=== PATIENT | female | born 1955 | race Caucasian/White ===

== ENCOUNTER → 2017-09-05 | Outpatient (CLI) | payer OTHER ==
--- NOTE | 2017-09-05 15:46 | BD ---
EXAMINATION TYPE: MG DEXA axial skeleton. DATE OF EXAM: 09/05/2017 COMPARISON: NONE CLINICAL HISTORY: screening Height: 5'3 1/2 Weight: 187 FRAX RISK QUESTIONS: Alcohol (3 or more units per day): no Family History (Parent hip fracture): no Glucocorticoids (More than 3mos): no (Ex: prednisone, prednisolone, methylprednisolone, dexamethasone, and hydrocortisone). History of Fracture in Adulthood: yes Secondary Osteoporosis: 1. Type 1 Diabetes: no 2. Hyperthyroidism: no 3. Menopause before 45: no 4. Malnutrition: no 5. Chronic liver disease: no Rheumatoid Arthritis: no Current Tobacco Use: no RISK FACTORS HISTORY OF: Diet low in dairy products/other sources of calcium: y Postmenopausal woman: y Frequent falls: y MEDICATIONS: Additional Medications: migraine Additional History: EXAM MEASUREMENTS: Bone mineral densitometry was performed using the [employer] System. Bone mineral density as measured about the Lumbar spine is: ----- L1-L4(G/cm2): 1.035 T Score Values are as follows: ----- L2: -1.9 ----- L3: -0.6 ----- L4: -0.9 ----- L1-L4: -1.2 Bone mineral density about the R hip (g/cm2): 0.919 Bone mineral density about the L hip (g/cm2): 0.841 T Score values are as follows: -----R Neck: -0.9 -----L Neck: -1.4 -----R Total: -1.0 -----L Total: -0.7 IMPRESSION: Osteopenia (T Score between -2.5 and -1) overall in left hip and low back. There is slightly increased risk of fracture and the patient may be considered for treatment. Re-Screen 2-5 years. NOTE: T-SCORE=SD OF THE YOUNG ADULT MEAN.
--- NOTE | 2017-09-07 10:09 | MM ---
Reason for exam: screening (asymptomatic). Last mammogram was performed 7 years and 7 months ago. History: Family history of breast cancer in aunt and breast cancer in grandmother. Physical Findings: A clinical breast exam by your physician is recommended on an annual basis and results should be correlated with mammographic findings. MG Screening Mammo w CAD Bilateral CC and MLO view(s) were taken. Prior study comparison: February 18, 2010, bilateral diagnostic digital mammog. December 18, 2007, bilateral diagnostic digital mammog. The breast tissue is heterogeneously dense. This may lower the sensitivity of mammography. Stable benign calcifications. There is chronic nodularity bilaterally. There is no dominant lesion. No significant changes when compared with prior studies. ASSESSMENT: Benign, BI-RAD 2 RECOMMENDATION: Routine screening mammogram of both breasts in 1 year.
== END | disposition home or self-care (01) ==
LOC: RADMAMWWP 14:49
PROVIDERS: ATTEND Family Medicine
DX: Z12.31 Encounter for screening mammogram for malignant neoplasm of breast (principal); M85.88 Other specified disorders of bone density and structure, other site
CPT/HCPCS: 77067; 77080

== ENCOUNTER 2018-11-12 20:43 | Observation (INO) | payer OTHER ==
[2018-11-12] MEDS ORDERED: MORPHINE SULFATE 4 MG/ML SYRINGE IVP STA (21:44)
[2018-11-12] MEDS ORDERED: DIPH,PERTUS(ACELL)TETVAC-LF 0.5 ML VIAL IM ONE (21:44)
[2018-11-12] MEDS ORDERED: ceFAZolin IN SWFI 2 GM/20 ML SYRINGE IVP STA (21:44)
[2018-11-12] MEDS: ONDANSETRON 4 MG/2 ML VIAL IVP STA (21:53)
--- NOTE | 2018-11-12 22:06 | ED ---
Upper Extremity HPI <MigdaliaJamil Jazmyne - Last Filed: 11/12/18 23:23> - General Source: patient, RN notes reviewed Mode of arrival: wheelchair Limitations: no limitations <Abbe Winchester - Last Filed: 11/12/18 23:28> - General Chief Complaint: Extremity Injury, Upper Stated Complaint: Wrist Injury-fall Time Seen by Provider: 11/12/18 21:17 - History of Present Illness Initial Comments: 63-year-old female presents emergency Department chief complaint of right wrist injury. Patient states she was walking her dog states her dog full for causing her trip and fall onto her right wrist. She did fall on asphalt. Patient denies any head injury no loss conscious. Patient states there is a bleeding wound on her right wrist. She is unsure when her last tetanus was. Patient is right-hand dominant. (Abbe Winchester) - Related Data Home Medications Medication Instructions Recorded Confirmed SUMAtriptan SUCCINATE [Imitrex] 100 mg PO TID PRN 11/25/14 11/12/18 buPROPion HCL [Wellbutrin XL] 300 mg PO HS 11/12/18 11/12/18 Allergies Allergy/AdvReac Type Severity Reaction Status Date / Time No Known Allergies Allergy Verified 11/12/18 21:43 Review of Systems ROS Other: All systems not noted in ROS Statement are negative. <Jamil Negron - Last Filed: 11/12/18 23:23> ROS Other: All systems not noted in ROS Statement are negative. <Abbe Winchester - Last Filed: 11/12/18 23:28> ROS Statement: Those systems with pertinent positive or pertinent negative responses have been documented in the HPI. Past Medical History Additional Past Medical History / Comment(s): Nephrolithiasis, History of Any Multi-Drug Resistant Organisms: None Reported Past Surgical History: Orthopedic Surgery, Tubal Ligation Additional Past Surgical History / Comment(s): deviated septum, left shoulder Past Psychological History: Depression Smoking Status: Former smoker Past Alcohol Use History: Rare Past Drug Use History: None Reported - Past Family History Brother(s) Family Medical History: Cancer <Abbe Winchester - Last Filed: 11/12/18 23:28> General Exam Limitations: no limitations General appearance: alert, in no apparent distress Neck exam: Present: normal inspection, full ROM. Absent: tenderness, meningismus, lymphadenopathy Respiratory exam: Present: normal lung sounds bilaterally. Absent: respiratory distress, wheezes, rales, rhonchi, stridor Cardiovascular Exam: Present: regular rate, normal rhythm, normal heart sounds. Absent: systolic murmur, diastolic murmur, rubs, gallop, clicks Extremities exam: Present: other (Right wrist there is an abrasion with secondary wound which appears to be a puncture wound, radial pulses equal bilaterally there is an obvious deformity, severe times with palpation, no proximal forearm tenderness) Skin exam: Present: warm, dry, intact, normal color. Absent: rash <Abbe Winchester M - Last Filed: 11/12/18 23:28> Course Vital Signs 11/12/18 11/12/18 11/12/18 21:04 22:14 22:39 Temperature 97.9 F Pulse Rate 74 76 77 Respiratory 18 16 16 Rate Blood Pressure 107/78 127/83 165/95 O2 Sat by Pulse 97 98 98 Oximetry 11/12/18 11/12/18 11/12/18 22:43 22:46 22:51 Temperature Pulse Rate 86 71 80 Respiratory 16 15 16 Rate Blood Pressure 160/90 176/90 172/102 O2 Sat by Pulse 98 98 100 Oximetry 11/12/18 11/12/18 22:58 23:08 Temperature Pulse Rate 72 72 Respiratory 16 16 Rate Blood Pressure 156/98 139/93 O2 Sat by Pulse 100 100 Oximetry Procedures - Orthopedic Fracture Reduction Fracture #1 Consent Obtained: written consent Side: right Fracture Reduction Location: radius, ulna Analgesia: procedural sedation Technique: direct manipulation Post Reduction X-rays Demonstrate: acceptable reduction Post-Reduction Neuro Exam: intact Post-Reduction Vascular Exam: intact Splint Applied: Yes Patient Tolerated Procedure: well - Procedural Sedation Procedural Sedation Start Time: 22:43 Procedural Sedation Stop Time: 23:23 Indications: fracture/dislocation reduction ASA Class: I Mallampati Airway Score: 1 Preparation: ekg monitor tech applied, pulse oximeter, capnometry used, supplemental O2 applied, suction/airway equipment at bedside, IV secured IV Propofol Dose (mgs): 60 Complications: none Patient Tolerated Procedure: well <Jamil Negron N - Last Filed: 11/12/18 23:23> Medical Decision Making <Jamil Negron - Last Filed: 11/12/18 23:23> - Medical Decision Making 63-year-old female with slip and fall, distal radius and ulnar fracture. There is concern for open fracture is resolving puncture wound with proximity to the proximal ulnar fracture. Case is discussed with orthopedics, Dr. Curry, will take to the ER for washout and splinting tomorrow. She will be continued on antibiotics. Laboratory studies will be obtained, these are pending. (Jamil Negron) Disposition <Jamil Negron - Last Filed: 11/12/18 23:23> <Abbe Winchester - Last Filed: 11/12/18 23:28> Clinical Impression: Open fracture of radius and ulna Disposition: ADMITTED IP TO THIS HOSP Condition: Fair Referrals: Shilpi Mcneil MD [Primary Care Provider] - 1-2 days
--- NOTE | 2018-11-12 22:11 | XR ---
PROCEDURE: XR elbow complete RT - 3V DATE AND TIME: 11/12/2018 9:33 PM CLINICAL INDICATION: PHH; Pain TECHNIQUE: Department protocol COMPARISON: None FINDINGS: There is no fracture or malalignment. The soft tissues are unremarkable. IMPRESSION: NO ACUTE PROCESS.
--- NOTE | 2018-11-12 22:13 | XR ---
PROCEDURE: XR forearm RT - 2 views DATE AND TIME: 11/12/2018 9:33 PM CLINICAL INDICATION: PHH; Pain TECHNIQUE: Department protocol COMPARISON: None FINDINGS: [place]ney-dorsal one shaft width displaced fractures of distal radius shaft and distal ulnar sha ft. DRUJ involvement. Carpal bones and metacarpals appear intact. IMPRESSION: Distal radius/ulna displaced fractures.
--- NOTE | 2018-11-12 22:15 | XR ---
PROCEDURE: XR wrist complete RT - 4 views DATE AND TIME: 11/12/2018 9:33 PM CLINICAL INDICATION: PHH; Pain TECHNIQUE: Department protocol COMPARISON: None FINDINGS: There is marked soft tissue swelling. Pauline-dorsal one shaft width displaced fractures of the distal radius and ulna are seen, with involvem ent of the DRUJ. The proximal and distal carpal rows appear intact, as do the metacarpals. IMPRESSION: Distal radius/ulna displaced fractures.
[2018-11-12] MEDS ORDERED: SODIUM CHLORIDE 0.9% 500 ML 500 ML IV STA (22:23)
[2018-11-12] MEDS ORDERED: PROPOFOL 10 MG/ML 20 ML VIAL IV STA (22:23)
[2018-11-12] MEDS ORDERED: HYDROmorphone 0.5 MG/0.5 ML SYRINGE IVP STA (23:12)
[2018-11-12] MEDS ORDERED: ONDANSETRON 4 MG/2 ML VIAL IVP PRN (23:24)
[2018-11-12] MEDS ORDERED: NALOXONE 0.4 MG/ML 1 ML VIAL IV PRN (23:24)
[2018-11-12] MEDS ORDERED: HYDROmorphone 0.5 MG/0.5 ML SYRINGE IVP PRN (23:24)
--- NOTE | 2018-11-12 23:44 | XR ---
EXAM: XR Right Wrist, 2 Views CLINICAL HISTORY: ITS.REASON XR Reason: Pain TECHNIQUE: Frontal and lateral views of the right wrist. COMPARISON: Right wrist radiographs on 11/12/2018 at 2122 hrs. FINDINGS: Bones/joints: Improved alignment of the distal right radius and ulna fractures with decreased but persistent mild ventral angulation of the distal fracture fragments. Interval placement of a cast which limits evaluation of fine bony detail. Osteopenia. Soft tissues: Soft tissue swelling. IMPRESSION: Improved alignment of the distal right radius and ulna fractures with decreased but persistent mild ventral angulation of the distal fracture fragments.
[2018-11-12] MEDS: SODIUM CHLORIDE 0.9% 1,000 ML IV SCH (23:47)
[2018-11-12 23:50] LABS: Basophils # (A) 0.1 k/uL (0-0.2); Basophils % (A) 0 %; Eosinophils # (A) 0.1 k/uL (0-0.7); Eosinophils % (A) 1 %; HCT 39.6 % (34.0-46.0); HGB 12.8 gm/dL (11.4-16.0); Lymphocytes # (A) 0.7 k/uL (1.0-4.8); Lymphocytes % (A) 5 %; MCH 29.8 pg (25.0-35.0); MCHC 32.4 g/dL (31.0-37.0); Mean Platelet Volume 8.2; Monocytes # (A) 0.8 k/uL (0-1.0); Monocytes % (A) 6 %; Neutrophils # (A) 12.1 k/uL (1.3-7.7); Neutrophils % (A) 88 %; Platelet Count 218 k/uL (150-450); RBC 4.31 m/uL (3.80-5.40); RDW 13.8 % (11.5-15.5); WBC 13.8 k/uL (3.8-10.6)
[2018-11-12 23:54] LABS: African American GFR (CKD) >90 (>60 ml/min/1.73 sqM); Albumin 3.8 g/dL (3.5-5.0); Anion Gap 8 mmol/L; Calcium 8.5 mg/dL (8.4-10.2); Carbon Dioxide 24 mmol/L (22-30); Chloride 109 mmol/L (98-107); Glucose 118 mg/dL (74-99); Sodium 141 mmol/L (137-145); Total Bilirubin 0.5 mg/dL (0.2-1.3); Total Protein 6.1 g/dL (6.3-8.2)
[2018-11-12 23:57] LABS: ALT 14 U/L (9-52); AST 28 U/L (14-36); Alkaline Phosphatase 60 U/L (38-126); Blood Urea Nitrogen 17 mg/dL (7-17); Potassium 4.7 mmol/L (3.5-5.1)
[2018-11-13 00:01] LABS: INR 0.9 (<1.2); Prothrombin Time 9.8 sec (9.0-12.0)
[2018-11-13] MEDS: HYDROmorphone 1 MG/ML 1 ML SYRINGE IVP PRN ×4 (01:18→11:25)
--- NOTE | 2018-11-13 09:06 | P.HPOR ---
History of Present Illness H&P Date: 11/13/18 This patient is a right hand dominant 63-year-old female that presented to the [facility] ED on 11/12/18 with complaints of a wrist injury. The patient states she was out walking her dog in front of her home when her puppy took off running, and she tripped on gravel and fell directly onto her outstretched right wrist. The patient states she saw an immediate deformity of the right wrist, and noticed a wound on the ulnar side of the wrist, therefore her daughter brought her in to the ED for evaluation. Arrival to the ED, x-rays were taken and revealed a displaced radius and ulna fractures. Due to the open, bleeding wound there was also concern that the fracture was open. Patient was given Tdap, and started on Kefzol. Fracture was reduced and splinted in the ED, and patient was admitted under the care of Dr. Curry for further evaluation and treatment. At the time of exam, the patient states her wrist pain is currently well controlled. She denies pain or injury to the left shoulder, left humerus, left clavicle. Patient denies additional complaints or concerns. Past Medical History Additional Past Medical History / Comment(s): Nephrolithiasis, ANXIETY/DEPRESSION , MIGRAINS History of Any Multi-Drug Resistant Organisms: None Reported Past Surgical History: Orthopedic Surgery, Tubal Ligation Additional Past Surgical History / Comment(s): deviated septum, left shoulder Past Anesthesia/Blood Transfusion Reactions: No Reported Reaction Past Psychological History: Anxiety, Depression Smoking Status: Former smoker Past Alcohol Use History: Rare Past Drug Use History: None Reported - Past Family History Brother(s) Family Medical History: Cancer Medications and Allergies Home Medications Medication Instructions Recorded Confirmed Type SUMAtriptan SUCCINATE [Imitrex] 100 mg PO TID PRN 11/25/14 11/12/18 History buPROPion HCL [Wellbutrin XL] 300 mg PO HS 11/12/18 11/12/18 History Allergies Allergy/AdvReac Type Severity Reaction Status Date / Time No Known Allergies Allergy Verified 11/12/18 21:43 Physical Examination At the time of my exam, the patient is lying in bed in no apparent distress. The patient is alert and oriented 3. Her head is atraumatic and normocephalic. Her breathing appears nonlabored. On inspection of the right upper extremity, there is a posterior splint in place. The splint is clean, dry, intact. The visible portion of the fingers are warm and well perfused with brisk capillary refill. Patient is able to wiggle her fingers with no issue or pain. There is no pain with passive range of motion of the fingers. Sensation is intact to light touch in the distribution of the median, radial, ulnar nerves. There is no pain on palpation of the right elbow, right humerus, right shoulder, right clavicle. Results Right elbow 11/13/18: No acute fractures. No acute dislocations seen. Right forearm 11/13/18: Volar displacement of distal ulna and radius fractures. Right wrist 11/13/18: Volar displacement of distal ulna and radius fractures. - Labs Labs: Abnormal Lab Results - Last 24 Hours (Table) 11/12/18 11/12/18 11/12/18 Range/Units 23:36 23:36 23:36 WBC 13.8 H (3.8-10.6) k/uL Neutrophils # 12.1 H (1.3-7.7) k/uL Lymphocytes # 0.7 L (1.0-4.8) k/uL APTT 19.0 L (22.0-30.0) sec Chloride 109 H (98-107) mmol/L Glucose 118 H (74-99) mg/dL Total Protein 6.1 L (6.3-8.2) g/dL H & H 11/12/18 Range/Units 23:36 Hgb 12.8 (11.4-16.0) gm/dL Hct 39.6 (34.0-46.0) % Coagulation 11/12/18 Range/Units 23:36 INR 0.9 (<1.2) Result Diagrams: 11/12/18 23:36 11/12/18 23:36 Assessment and Plan Assessment: Displaced distal radius and ulna fractures, right wrist Plan: - We will plan for an irrigation and debridement, reduction and splint application of the right wrist in the operating room today with Dr. Curry. Pending medical clearance and consent. - She is to keep her current splint in place at this time. Recommended ice and elevation for swelling and pain control.
[2018-11-13] MEDS ORDERED: SUMAtriptan SUCCINATE 50 MG TAB PO PRN (10:28)
--- NOTE | 2018-11-13 10:37 | P.CONS ---
History of Present Illness - Reason for Consult Consult date: 11/13/18 Medical management Requesting physician: Jose Luis Curry - Chief Complaint Right distal radius and ulna fracture - History of Present Illness This is a 63-year-old female, patient of Dr. Mcneil. She has a known past medical history of migraines, depression and kidney stones. Patient reports that she was taking her new puppy for a walk yesterday. The puppy took off running a patient then took off after it however she tripped and fell landing on cement with her hands stretched out. She was having pain in her right wrist came into the ER for further evaluation and treatment and x-rays of the wrist revealed a displaced radius and ulnar fracture. There is concerns of possible open fracture. Patient was given tetanus and started on Kefzol. Fracture was reduced and splinted in the ED the patient was admitted to orthopedics under Dr. Curry's care. Her pains currently controlled. Been consulted for medical management. Patient scheduled for or today for irrigation and debridement with reduction and splint application to the right wrist. Patient denies any fever, should chills, sweats, nausea vomiting, bowel movement changes, urinary symptoms, chest pain or shortness of breath. EKG has been ordered. White count was elevated at 13.8 Review of Systems Please refer to HPI otherwise unremarkable Past Medical History Additional Past Medical History / Comment(s): Nephrolithiasis, ANXIETY/DEPRESSION , MIGRAINS History of Any Multi-Drug Resistant Organisms: None Reported Past Surgical History: Orthopedic Surgery, Tubal Ligation Additional Past Surgical History / Comment(s): deviated septum, left shoulder Past Anesthesia/Blood Transfusion Reactions: No Reported Reaction Past Psychological History: Anxiety, Depression Smoking Status: Former smoker Past Alcohol Use History: Rare Past Drug Use History: None Reported - Past Family History Brother(s) Family Medical History: Cancer Medications and Allergies Home Medications Medication Instructions Recorded Confirmed Type SUMAtriptan SUCCINATE [Imitrex] 100 mg PO TID PRN 11/25/14 11/12/18 History buPROPion HCL [Wellbutrin XL] 300 mg PO HS 11/12/18 11/12/18 History Allergies Allergy/AdvReac Type Severity Reaction Status Date / Time No Known Allergies Allergy Verified 11/12/18 21:43 Physical Exam Vitals: Vital Signs Temp Pulse Pulse Resp BP BP Pulse Ox 11/13/18 08:00 97.6 F 69 18 110/73 97 11/13/18 04:00 97.7 F 66 16 142/87 100 11/13/18 00:27 97.6 F 78 16 131/89 98 11/12/18 23:49 70 16 141/89 11/12/18 23:08 72 16 139/93 100 11/12/18 22:58 72 16 156/98 100 11/12/18 22:51 80 16 172/102 100 11/12/18 22:46 71 15 176/90 98 11/12/18 22:43 86 16 160/90 98 11/12/18 22:39 77 16 165/95 98 11/12/18 22:14 76 16 127/83 98 11/12/18 21:04 97.9 F 74 18 107/78 97 Intake and Output 11/12/18 11/13/18 11/13/18 22:59 06:59 14:59 Other: Voiding Method Toilet # Voids 1 Weight 80.739 kg Head normocephalic Neck supple Lungs clear to auscultation bilaterally no wheezing or crackles Heart regular rate and rhythm S1-S2, no rub or gallop Abdomen is soft nontender nondistended positive bowel sounds no hepatosplenomegaly Extremities no edema. Right arm is in a splint. She is able to move her fingers. Results are warm to touch. Neuro alert and orientated to 3 Results CBC & Chem 7: 11/12/18 23:36 11/12/18 23:36 Labs: Abnormal Lab Results - Last 24 Hours (Table) 11/12/18 11/12/18 11/12/18 Range/Units 23:36 23:36 23:36 WBC 13.8 H (3.8-10.6) k/uL Neutrophils # 12.1 H (1.3-7.7) k/uL Lymphocytes # 0.7 L (1.0-4.8) k/uL APTT 19.0 L (22.0-30.0) sec Chloride 109 H (98-107) mmol/L Glucose 118 H (74-99) mg/dL Total Protein 6.1 L (6.3-8.2) g/dL Assessment and Plan Assessment: 1. Displaced distal radius and ulnar fracture of the right wrist: Patient scheduled for irrigation and debridement with reduction and splint application with Dr. Curry today. Patient received tetanus and is currently on Kefzol. Patient is medically stable to proceed with surgery once EKG is reviewed 2. History of migraines 3. History of depression 4. History of kidney stones 5. Leukocytosis: White count 13.8 possibly reactive from the fracture. Patient exhibiting no signs or symptoms of illness. Repeat CBC. GI prophylaxis Pepcid and will hold off on anticoagulation for DVT prophylaxis due to patient being scheduled for OR today Thank you for this consultation. We will continue to follow along during patient's hospitalization. Time with Patient: Greater than 30 (Greater than 50% of the total time spent in counseling and coordination of care.I performed an examination of the patient and discussed their management with the physician Trucking Supervisor. I have reviewed the Physician Trucking Supervisor's notes and agree with the documented findings and plan of care)
[2018-11-13 11:38] LABS: Basophils % (A) 0 %; Eosinophils % (A) 0 %; HCT 38.6 % (34.0-46.0); HGB 12.1 gm/dL (11.4-16.0); Lymphocytes # (A) 0.7 k/uL (1.0-4.8); Lymphocytes % (A) 7 %; MCH 29.8 pg (25.0-35.0); MCHC 31.4 g/dL (31.0-37.0); MCV 94.9 fL (80.0-100.0); Mean Platelet Volume 7.7; Monocytes # (A) 0.8 k/uL (0-1.0); Monocytes % (A) 8 %; Neutrophils # (A) 8.8 k/uL (1.3-7.7); Neutrophils % (A) 84 %; Platelet Count 212 k/uL (150-450); RBC 4.07 m/uL (3.80-5.40); RDW 12.9 % (11.5-15.5); WBC 10.6 k/uL (3.8-10.6)
[2018-11-13 11:49] LABS: ALT 21 U/L (9-52); AST 20 U/L (14-36); African American GFR (CKD) >90 (>60 ml/min/1.73 sqM); Albumin 3.6 g/dL (3.5-5.0); Alkaline Phosphatase 65 U/L (38-126); Anion Gap 9 mmol/L; Blood Urea Nitrogen 12 mg/dL (7-17); Calcium 8.5 mg/dL (8.4-10.2); Carbon Dioxide 24 mmol/L (22-30); Chloride 109 mmol/L (98-107); Glucose 114 mg/dL (74-99); Potassium 4.3 mmol/L (3.5-5.1); Sodium 142 mmol/L (137-145); Total Bilirubin 0.5 mg/dL (0.2-1.3); Total Protein 5.6 g/dL (6.3-8.2)
[2018-11-13] MEDS ORDERED: IV FLUID CONTINUATION 1,000 ML IV ONE (14:23)
[2018-11-13] MEDS: ONDANSETRON 4 MG/2 ML VIAL IVP STA (14:28)
[2018-11-13] MEDS ORDERED: fentaNYL (PF) 50 MCG/ML 2 ML AMP ONE (15:12)
[2018-11-13] MEDS ORDERED: MIDAZOLAM 2 MG/2 ML VIAL ONE (15:12)
[2018-11-13] MEDS ORDERED: PROPOFOL 10 MG/ML 20 ML VIAL IV ONE (15:12)
[2018-11-13] MEDS ORDERED: SUCCINYLCHOLINE CHLORIDE 100 MG/5 ML SYR IV ONE (15:12)
[2018-11-13] MEDS ORDERED: LIDOCAINE 1% INJ 10MG/ML (20 ML MDV) ONE (15:12)
[2018-11-13] MEDS ORDERED: ceFAZolin 1,000 MG VIAL ONE (15:12)
[2018-11-13] MEDS ORDERED: SODIUM CHLORIDE 0.9% 50 ML with ceFAZolin 1,000 MG IV ONE ×2 (15:42)
--- NOTE | 2018-11-13 16:33 | P.OP ---
Date of Procedure: 11/13/18 Preoperative Diagnosis: 1. Open right distal radius and ulna fractures Postoperative Diagnosis: 1. Closed right intra-articular distal radius fracture 2. Open Type 1 left distal ulna fracture Procedure(s) Performed: 1. Irrigation and debridement of left open ulna fracture 2. 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 She was brought into the ER where she was found to have significantly displaced distal radius and ulna fractures. There was an open wound over the dorsal aspect of the left distal ulna. The ER was concerned with an open fracture. She was admitted under my care for operative exploration and an irrigation and debridement of her open fracture. I met with the patient and her daughter preoperatively discussed treatment options. We discussed that this would be a temporizing procedure to explore and irrigate her open fracture and then splint her wrist fractures. They understand that they will need definitive surgery with a hand surgeon. We discussed the need for a computed tomography scan following surgery. We discussed the potential risks and complications of my procedure including but not limited to risk of anesthesia, superficial infection, deep infection, damage to local blood vessel or nerves, postoperative medical complications, complications from her splint. The patient her daughter understand these potential complications and also a gauze at other less common complications are possible. They provided their verbal and written consent to go forward with surgery. Operative Findings: There is a 5 mm open puncture wound over the dorsal ulnar aspect of the wrist. There is active bleeding with fat droplets. There is minimal contamination of the open wound with no gross dirt or debris. Description of Procedure: The patient was identified in preoperative holding and the correct right arm was marked my initials. I reviewed the consent form with the patient and her daughter. All their questions were answered. She was then brought back to the operating room and positioned on an OR table where general anesthetic and preoperative and biotics were administered. Once he was under an anesthetic her splint was removed. On inspection of the right wrist there is diffuse swelling and ecchymosis. There are superficial abrasions over the dorsum of the wrist. There is a 5 mm open puncture wound over the dorsal ulnar aspect of the wrist. There is active bleeding and fat droplets. The wound appeared consistent with an open fracture. The right wrist was then prepped and draped in the standard sterile fashion. Prior to starting surgery timeout was performed identifying the correct patient, operative extremity, and procedure. I began by extending the small puncture wound proximally and distally. The wound was explored and was found to communicate directly with the proximal shaft of the ulna. There was no gross contamination. The wound was thoroughly irrigated using 3 L of sterile saline and cystoscopy tubing once the wound was irrigated the extensions of the open wound were closed with interrupted 3-0 nylon and the open wound was left open to drain. A sterile dressing consisting of Betadine soaked Adaptic, 4 x 4, and web roll was applied. The drapes were taken down and a well-padded sugar tong splint was applied. A final fluoroscopic image was taken to verify reduction of the radius and ulna. The patient was placed in a sling, transferred to a gurney, and brought to the recovery room having encountered procedure well. Plan: The patient is going to discharge home tonight once her pain is controlled and the computed tomography scan of the wrist is completed. She is remain strictly nonweightbearing on her right arm and use a sling for comfort. She'll follow up with my partner Dr. Carlos Daniels later this week to discuss definitive treatment.
[2018-11-13] MEDS ORDERED: HYDROmorphone 1 MG/ML 1 ML SYRINGE IVP ONE (16:40)
[2018-11-13] MEDS: HYDROcodone/APAP 5-325MG 1 EACH TAB PO PRN (18:36)
--- NOTE | 2018-11-13 19:46 | CT ---
EXAMINATION TYPE: CT wrist RT wo con, with 3-D reconstructions DATE OF EXAM: 11/13/2018 COMPARISON: Radiographs 11/13/2018 3:15 PM HISTORY: Right wrist fracture. CT DLP: 236.3 mGycm Automated exposure control for dose reduction was used. FINDINGS: Radius intra-articular comminuted fracture: The displaced intra-articular fracture involves the radio carpal and DRUJ articulations. The main fracture fragment articulates with the scaphoid and lunate an d is one shaft-width displaced anteriorly. There is a 1.2 cm triangular bone fragment projecting just proximal to the main fracture fragment. Ulna apex-dorsomedial angulated fracture does not appear comminuted. It shows one half shaft-width me dial displacement and similar override. The proximal and distal carpal rows appear intact, as do the metacarpals. IMPRESSION: RADIUS-ULNAR FRACTURES.
[2018-11-13] MEDS ORDERED: buPROPion XL 300 MG TAB.ER.24H PO SCH (21:00)
[2018-11-13] MEDS: SODIUM CHLORIDE 0.9% 1,000 ML IV SCH ×2 (21:02→22:55)
[2018-11-14] MEDS ORDERED: HYDROcodone/APAP 5-325MG 1 EACH TAB ONE (01:53)
[2018-11-14 07:29] VITALS: BP 115/74; PULSE 78; RESP 18; TEMP 98.2
[2018-11-14] MEDS: HYDROcodone/APAP 5-325MG 1 EACH TAB PO PRN (08:22)
[2018-11-14] MEDS ORDERED: FAMOTIDINE 20 MG TAB PO SCH (09:00)
--- NOTE | 2018-11-14 09:12 | P.PN ---
Progress Note - Text Progress Note Date: 11/14/18 S: This patient is a right hand dominant 63-year-old female that presented to the [facility] ED on 11/12/18 with complaints of a right wrist injury. The patient states she was out walking her dog in front of her home when her puppy took off running, and she tripped on gravel and fell directly onto her outstretched right wrist. The patient states she saw an immediate deformity of the right wrist, and noticed a wound on the ulnar side of the wrist, therefore her daughter brought her in to the ED for evaluation. Arrival to the ED, x-rays were taken and revealed a displaced radius and ulna fractures. Due to the open, bleeding wound there was also concern that the fracture was open. Patient was given Tdap, and started on Kefzol. Fracture was reduced and splinted in the ED, and patient was admitted under the care of Dr. Curry for further evaluation and treatment. Patient underwent a right wrist irrigation and debridement, reduction and splint application on 11/13/[address] Curry. 11/14/18: Patient examined bedside this morning. Patient was discharged last night following the procedure, although per nursing and per the patient, the patient felt "out of it" and she felt as if her pain was uncontrolled, therefore she stayed overnight for observation. Patient states she is feeling better this morning, she ate a sandwich for dinner last night and tolerated this well. She states her pain is currently well controlled on [place]. She denies any issues with urination. Patient denies nausea, vomiting, chest pain, shortness of breath, numbness or tingling of the right upper extremity. O: On examination, the patient is in bed in no apparent distress. She is alert and oriented 3. On inspection of the right upper extremity, there is a well- fitting sugar tong splint in place. Sugar tong splint is clean, dry, intact. There is a sling in place. The visible portion of the right fingers are warm and well perfused with brisk capillary refill. Patient is able to wiggle her fingers without issue or pain. There is no pain with passive range of motion of the fingers. A: Open, right distal radius and ulna fractures status post irrigation and debridement, reduction and splint application on 11/13/[address] Curry. P: - Patient may discharge home today when her pain is well controlled and she receives medical clearance. Patient is to keep the splint intact Remain strictly nonweightbearing on the right upper extremity. She is to follow-up with Dr. Daniels in the office on 11/15/18. - I recommended she ice and elevate the right upper extremity for swelling and pain control. - Patient is to take pain medications as prescribed, she is to take Keflex 500mg for three days, as prescribed. Patient discussed with Dr. Curry.
--- NOTE | 2018-11-14 09:57 | P.PN ---
Subjective Progress Note Date: 11/14/18 This is a 63-year-old female, patient of Dr. Mcneil. She has a known past medical history of migraines, depression and kidney stones. Patient reports that she was taking her new puppy for a walk yesterday. The puppy took off running a patient then took off after it however she tripped and fell landing on cement with her hands stretched out. She was having pain in her right wrist came into the ER for further evaluation and treatment and x-rays of the wrist revealed a displaced radius and ulnar fracture. There is concerns of possible open fracture. Patient was given tetanus and started on Kefzol. Fracture was reduced and splinted in the ED the patient was admitted to orthopedics under Dr. Curry's care. Her pains currently controlled. Been consulted for medical management. Patient scheduled for or today for irrigation and debridement with reduction and splint application to the right wrist. Patient denies any fever, should chills, sweats, nausea vomiting, bowel movement changes, urinary symptoms, chest pain or shortness of breath. EKG has been ordered. White count was elevated at 13.8 On 11/14/2018 patient alert and oriented 3. Patient is status post irrigation debridement of left open ulnar fracture patient of long-arm splint with Dr. Curry. Patient's discharge was held yesterday due to increased drowsiness postoperatively. Today patient is currently resting comfortably in bed. Patient still states she has some discomfort but has been up ambulating. Patient denies any chest pain or shortness of breath. Patient denies nausea vomiting or diarrhea. Patient denies any urinary burning or frequency. Objective - Vital Signs Vital signs: Vital Signs Temp 98.2 F 11/14/18 07:00 Pulse 78 11/14/18 08:00 Resp 18 11/14/18 08:00 BP 115/74 11/14/18 07:00 Pulse Ox 93 L 11/14/18 07:00 Intake & Output 11/13/18 11/14/18 11/14/18 18:59 06:59 18:59 Intake Total 600 520 Output Total 1 Balance 599 520 Intake: IV 600 Oral 120 Other 400 Output: Estimated Blood Loss 1 Other: Voiding Method Toilet Toilet Toilet # Voids 1 1 - Exam Head normocephalic Neck supple Lungs clear to auscultation bilaterally no wheezing or crackles Heart regular rate and rhythm S1-S2, no rub or gallop Abdomen is soft nontender nondistended positive bowel sounds no hepatosplenomegaly Extremities no edema. Right arm is in a splint. She is able to move her fingers. Results are warm to touch. Neuro alert and orientated to 3 - Labs CBC & Chem 7: 11/13/18 10:59 11/13/18 10:59 Labs: Abnormal Lab Results - Last 24 Hours (Table) 11/13/18 11/13/18 Range/Units 10:59 10:59 Neutrophils # 8.8 H (1.3-7.7) k/uL Lymphocytes # 0.7 L (1.0-4.8) k/uL Chloride 109 H (98-107) mmol/L Glucose 114 H (74-99) mg/dL Total Protein 5.6 L (6.3-8.2) g/dL Assessment and Plan Assessment: 1. Displaced distal radius and ulnar fracture of the right wrist: Patient scheduled for irrigation and debridement with reduction and splint application with Dr. Curry today. Patient received tetanus and is currently on Kefzol. Status post irrigation and debridement of left open ulna fracture, application of long arm splint by physician. Patient has follow-up appointment with hand surgeon Dr. Daniels tomorrow 11/15/2018. Per orthopedic services recommended she ice and elevate right extremity. [place] for pain control and Keflex for 3 d ays per orthopedic services 2. History of migraines 3. History of depression 4. History of kidney stones 5. Leukocytosis: White count 13.8 possibly reactive from the fracture. Patient exhibiting no signs or symptoms of illness. Repeat WBC 10.6. Patient is asymptomatic afebrile. I performed an examination of the patient and discussed their management with the Nurse Practitioner. I have reviewed the Nurse Practitioner's notes and agree with the documented findings and plan of care
[2018-11-14 10:00] LABS: Basophils # (A) 0.1 k/uL (0-0.2); Basophils % (A) 1 %; Eosinophils % (A) 0 %; HCT 36.7 % (34.0-46.0); Lymphocytes # (A) 0.7 k/uL (1.0-4.8); Lymphocytes % (A) 10 %; MCH 30.4 pg (25.0-35.0); MCHC 32.7 g/dL (31.0-37.0); MCV 92.8 fL (80.0-100.0); Mean Platelet Volume 8.1; Monocytes # (A) 0.5 k/uL (0-1.0); Monocytes % (A) 7 %; Neutrophils # (A) 5.5 k/uL (1.3-7.7); Neutrophils % (A) 80 %; Platelet Count 200 k/uL (150-450); RBC 3.95 m/uL (3.80-5.40); RDW 13.9 % (11.5-15.5); WBC 6.9 k/uL (3.8-10.6)
[2018-11-14 10:17] LABS: ALT 21 U/L (9-52); AST 18 U/L (14-36); African American GFR (CKD) >90 (>60 ml/min/1.73 sqM); Albumin 3.1 g/dL (3.5-5.0); Alkaline Phosphatase 63 U/L (38-126); Anion Gap 6 mmol/L; Blood Urea Nitrogen 8 mg/dL (7-17); Calcium 8.4 mg/dL (8.4-10.2); Carbon Dioxide 28 mmol/L (22-30); Chloride 105 mmol/L (98-107); Glucose 115 mg/dL (74-99); Potassium 3.9 mmol/L (3.5-5.1); Sodium 139 mmol/L (137-145); Total Bilirubin 0.6 mg/dL (0.2-1.3); Total Protein 5.1 g/dL (6.3-8.2)
--- NOTE | 2018-11-15 10:57 | FL ---
EXAMINATION TYPE: XR wrist limited RT, XR wrist limited RT DATE OF EXAM: 11/13/2018 COMPARISON: NONE HISTORY: 63-year-old female postreduction right wrist FINDINGS: Single intraoperative image during closed reduction of the patient's distal radial and ulnar fracture s. Overlying plaster splint is demonstrated. FLUOROSCOPY Fluoroscopy time of 3 seconds was used during right wrist closed reduction. 1 image/s document/s the procedure. IMPRESSION: Fluoroscopy as above.
== END 2018-11-14 13:37 | disposition home or self-care (01) ==
LOC: EC 20:43 → 1SOBS 23:22
PROVIDERS: ADMIT Orthopaedic Surgery; ATTEND Orthopaedic Surgery
DX: S52.501B Unspecified fracture of the lower end of right radius, initial encounter for open fracture type I or II (principal); S52.001B Unspecified fracture of upper end of right ulna, initial encounter for open fracture type I or II; W01.0XXA Fall on same level from slipping, tripping and stumbling without subsequent striking against object, initial encounter; Y93.K1 Activity, walking an animal; F41.9 Anxiety disorder, unspecified; F32.9 Major depressive disorder, single episode, unspecified; G43.909 Migraine, unspecified, not intractable, without status migrainosus; D72.829 Elevated white blood cell count, unspecified; R40.0 Somnolence; S61.531A Puncture wound without foreign body of right wrist, initial encounter; K21.9 Gastro-esophageal reflux disease without esophagitis; Z87.891 Personal history of nicotine dependence; Z87.442 Personal history of urinary calculi; Z79.899 Other long term (current) drug therapy; Z23 Encounter for immunization; Z80.9 Family history of malignant neoplasm, unspecified
CPT/HCPCS: 97597; 25605; 29105; 96365; 96366; 96376; 90471; 96375; 99285; 36415; 80053 ×3; 85025 ×3; 85610; 85730; 73080; 73090; 73100 ×2; 73110; 73200; 90715; G0378 ×3; J2250; J2270; J2405 ×2; J0690 ×3; J2001; J3010; J1170 ×2; J0330; J2704 ×2; 96374

== ENCOUNTER → 2019-01-24 | Outpatient (CLI) | payer OTHER | END | disposition home or self-care (01) | LOC: LABWHC1 10:45 | PROVIDERS: ATTEND Orthopaedic Surgery | DX: M25.531 Pain in right wrist (principal); S52.571A Other intraarticular fracture of lower end of right radius, initial encounter for closed fracture; S52.691D Other fracture of lower end of right ulna, subsequent encounter for closed fracture with routine healing; S64.11XD Injury of median nerve at wrist and hand level of right arm, subsequent encounter; Z48.89 Encounter for other specified surgical aftercare | CPT/HCPCS: 36415; 82306 ==

== ENCOUNTER → 2023-05-17 | Outpatient (CLI) | payer MEDICARE, BC ==
--- NOTE | 2023-05-18 14:14 | BD ---
EXAMINATION TYPE: Axial Bone Density DATE OF EXAM: 05/17/2023 CLINICAL HISTORY: 68 years old Female. ICD-10 CODE: Z78.0 SCREENING Height: Weight: FRAX RISK QUESTIONS: Family History (Parent hip fracture): maternal aunt Glucocorticoids (More than 3mos): yes, and no (Ex: prednisone, prednisolone, methylprednisolone, dexamethasone, and hydrocortisone). History of Fracture in Adulthood: yes RISK FACTORS HISTORY OF: hx of left tib fib, and rt wrist and forearm and hand, 63 and 64 yrs old History of Wrist Fracture: yes, rt wrist at 64 yrs old Family History of Osteoporosis: maternal aunt, Postmenopausal woman: yes, at age 52 Hyperparathyroidism: no Adrenal Insufficiency: no MEDICATIONS: Prednisone or other steroids: yes, inhalers as needed, covid feb 11, doses of prednisone and other s teroids Additional Medications: bp meds, reflux meds in the past, vit d 3 Additional History: hypertension, reflux hx of ulcer, hx of covid January 2023 EXAM MEASUREMENTS: Bone mineral densitometry was performed using the [employer]. Bone mineral density as measured about the Lumbar spine is: ----- L1-L4(G/cm2): 0.995 T Score Values are as follows: ----- L1: -2.4 ----- L2: -1.9 ----- L3: -1.2 ----- L4: -1.1 ----- L1-L4: -1.5 Z Score Values are as follows: ----- L1: -1.4 ----- L2: -1.0 ----- L3: -0.2 ----- L4: -0.2 ----- L1-L4: -0.6 Bone mineral density has: Decreased -3.9% since study of: 09.05.2017 Bone mineral density about the R hip (g/cm2): 0.871 Bone mineral density about the L hip (g/cm2): 0.757 T Score values are as follows: -----R Neck: -0.5 -----L Neck: -2.3 -----R Total: -1.1 -----L Total: -2.0 Z Score values are as follows: -----R Neck: 0.7 -----L Neck: -1.2 -----R Total: -0.2 -----L Total: -1.1 Bone mineral density has: Decreased -7.1% since study of: 2018 FRAX%s: The graph provided illustrates a 20.2% chance for a major osteoporotic fx and a 4.2% chance f or the hips probability for fx in 10 years time. IMPRESSION: Osteopenia (T Score between -2.5 and -1). There is slightly increased risk of fracture and the patient may be considered for treatment. Re-Screen 2-5 years. NOTE: T-SCORE=SD OF THE YOUNG ADULT MEAN.
--- NOTE | 2023-05-22 15:57 | MM ---
Reason for Exam: Screening (asymptomatic). Last mammogram was performed 5 year(s) and 8 month(s) ago. Patient History: Menarche at age 12. First Full-Term at age 24. Postmenopausal. Maternal grandmother had breast cancer, age 85. Maternal aunt had breast cancer, age 50. Risk Values: Carmen 5 year model risk: 1.5%. NCI Lifetime model risk: 5.0%. Prior Study Comparison: 12/18/2007 Bilateral Diagnostic Mammogram, [facility]. 02/18/2010 Bilateral Diagnostic Mammogram, [facility]. 09/05/2017 Bilateral Screening Mammogram, [facility]. Tissue Density: There are scattered fibroglandular densities. Findings: Analyzed By CAD. Some new grouped calcifications have developed centrally left breast in the posterior depth for which further magnification views are recommended. Otherwise, no significant change. Overall Assessment: Incomplete: need additional imaging evaluation, BI-RAD 0 Management: Special View Mammogram of the left breast. Additional views to include mag CC, magnified lateral, and 3-D lateral views. [facility] will attempt to contact patient to return for supplemental views and ultrasound if indicated. Electronically signed and approved by: Joe Gandara M.D. Radiologist
== END | disposition home or self-care (01) ==
LOC: RADBDWWP 12:03
PROVIDERS: ATTEND Family Medicine
DX: Z12.31 Encounter for screening mammogram for malignant neoplasm of breast (principal); M85.89 Other specified disorders of bone density and structure, multiple sites; Z80.3 Family history of malignant neoplasm of breast; Z78.0 Asymptomatic menopausal state
CPT/HCPCS: 77067; 77080

== ENCOUNTER → 2023-05-26 | Outpatient (CLI) | payer MEDICARE, BC ==
--- NOTE | 2023-05-26 14:06 | MM ---
Reason for Exam: Additional evaluation requested from prior study. Last screening mammogram was performed less than 1 month ago. Patient History: Menarche at age 12. First Full-Term at age 24. Postmenopausal. Maternal grandmother had breast cancer, age 85. Maternal aunt had breast cancer, age 50. Risk Values: Carmen 5 year model risk: 1.5%. NCI Lifetime model risk: 5.0%. Prior Study Comparison: 02/18/2010 Bilateral Diagnostic Mammogram, [facility]. 09/05/2017 Bilateral Screening Mammogram, [facility]. 05/17/2023 Bilateral MG screening mammo w CAD, [facility]. Tissue Density: Left: There are scattered fibroglandular densities. Findings: Analyzed By CAD. Pattern appears stable. Impression there are some coarse appearing calcifications. Follow-up in 6 months No suspicious groups of microcalcifications, spiculated or lobular masses, architectural distortion or other secondary signs of malignancy are mammographically apparent. Overall Assessment: Probably benign, BI-RAD 3 Management: Diagnostic Mammogram of the left breast in 6 months. A negative mammogram report should not preclude additional follow up of suspicious palpable abnormalities. Patient should continue monthly self breast exam. A clinical breast exam by your physician is recommended on an annual basis and results should be correlated with mammographic findings. Electronically signed and approved by: Saeid Hoang D.O. Radiologis
== END | disposition home or self-care (01) ==
LOC: RADMAMWWP 13:41
PROVIDERS: ATTEND Family Medicine
DX: R92.322 Mammographic fibroglandular density, left breast (principal); Z78.0 Asymptomatic menopausal state; Z80.3 Family history of malignant neoplasm of breast
CPT/HCPCS: 77065; G0279; 77061

== ENCOUNTER → 2023-11-29 | Outpatient (CLI) | payer MEDICARE, BC ==
--- NOTE | 2023-11-29 09:44 | MM ---
Reason for Exam: Follow-up at short interval from prior study. Last screening mammogram was performed 7 month(s) ago. Patient History: Menarche at age 12. First Full-Term at age 24. Postmenopausal. Maternal grandmother had breast cancer, age 85. Maternal aunt had breast cancer, age 50. Risk Values: Carmen 5 year model risk: 1.5%. NCI Lifetime model risk: 5.0%. Prior Study Comparison: 09/05/2017 Bilateral Screening Mammogram, [facility]. 05/17/2023 Bilateral MG screening mammo w CAD, [facility]. 05/26/2023 Left MG 3D work up w/cad LT, [facility]. Tissue Density: Left: There are scattered areas of fibroglandular density. Findings: Analyzed By CAD. The pattern is stable. Coarse calcifications remain present. No significant interval change evident. Overall Assessment: Benign, BI-RAD 2 Management: Diagnostic Mammogram of both breasts in 6 months. A negative mammogram report should not preclude additional follow up of suspicious palpable abnormalities. Patient should continue monthly self breast exam. A clinical breast exam by your physician is recommended on an annual basis and results should be correlated with mammographic findings. Note on Carmen scores and lifetime risk: 1. A Carmen score greater than 3% is considered moderate risk. If this is the case, consider specialist referral to assess eligibility for a risk reducing agent. 2. If overall lifetime risk for the development of breast cancer is 20% or higher, the patient may qualify for future screening with alternating mammogram and breast MRI. Electronically signed and approved by: Saeid Hoang D.O. Radiologis
== END | disposition home or self-care (01) ==
LOC: RADMAMWWP 09:09
PROVIDERS: ATTEND Family Medicine
DX: R92.322 Mammographic fibroglandular density, left breast (principal); R92.8 Other abnormal and inconclusive findings on diagnostic imaging of breast; Z78.0 Asymptomatic menopausal state; Z80.3 Family history of malignant neoplasm of breast
CPT/HCPCS: 77065; G0279; 77061

== ENCOUNTER → 2023-12-04 | Outpatient (CLI) | payer MEDICARE, BC ==
[2023-12-04 14:29] LABS: INR 0.9 (<1.2); Partial Thromboplastin Time 21.4 sec (22.0-30.0); Prothrombin Time 10.1 sec (10.0-12.5)
[2023-12-04 19:58] LABS: ALT 21 U/L (8-44); AST 29 U/L (13-35); Albumin 4.2 g/dL (3.8-4.9); Alkaline Phosphatase 55 U/L (41-126); BUN/Creat Ratio 20.33 Ratio (12.00-20.00); Blood Urea Nitrogen 18.3 mg/dL (9.0-27.0); Calcium 9.1 mg/dL (8.7-10.3); Carbon Dioxide 20.5 mmol/L (21.6-31.8); Chloride 108 mmol/L (96-109); Globulin 1.4 g/dL (1.6-3.3); Glucose 98 mg/dL (70-110); Potassium 4.6 mmol/L (3.5-5.5); Sodium 142 mmol/L (135-145); Total Bilirubin 0.8 mg/dL (0.3-1.2); Total Protein 5.6 g/dL (6.2-8.2)
[2023-12-04 20:20] LABS: HCT 42.7 % (37.2-46.3); HGB 13.7 g/dL (12.0-15.0); MCH 30.5 pg (27.0-32.0); MCHC 32.1 g/dL (32.0-37.0); MCV 95.1 FL (80.0-97.0); Mean Platelet Volume 11.6 FL (9.5-12.2); NRBC Per 100 WBC 0 X 10*3/uL (0.00-0.01); Platelet Count 271 X 10*3/uL (140-440); RBC 4.49 X 10*6/uL (4.10-5.20); RDW 13.2 % (11.5-14.5); WBC 9.12 X 10*3/uL (4.50-10.00)
== END | disposition home or self-care (01) ==
LOC: LABPAT 13:19
PROVIDERS: ATTEND Orthopaedic Surgery
DX: Z01.812 Encounter for preprocedural laboratory examination (principal); E11.9 Type 2 diabetes mellitus without complications; M16.11 Unilateral primary osteoarthritis, right hip; Z22.322 Carrier or suspected carrier of Methicillin resistant Staphylococcus aureus
CPT/HCPCS: 80053; 83036; 85027; 85610; 85730; 86850; 86900; 86901; 87070

== ENCOUNTER 2023-12-13 10:38 | Inpatient (IN) | payer MEDICARE, BC ==
[2023-12-07 15:15] VITALS: BMI 30.2
[~2023-12-13 10:38] MED LIST: ACETAMINOPHEN TAB 500 MG TAB PO PRN; HYDROmorphone 0.5 MG/0.5 ML SYRINGE IVP PRN; LIDOCAINE 1% (10MG/ML) FOR IV START INTRADERMA PRN; MIDAZOLAM 2 MG/2 ML VIAL IV PRN; ONDANSETRON 4 MG/2 ML VIAL IVP PRN; TRANEXAMIC 1,000 MG/100ML-NACL 1,000 MG in SALINE 1 100ML.BAG IV PRN; TRANEXAMIC 1,000 MG/100ML-NACL 1,000 MG in SALINE 1 100ML.BAG IVPB PRN
[2023-12-13] MEDS: IV FLUID CONTINUATION 1,000 ML IV ONE ×3 (11:20→15:06)
[2023-12-13] MEDS: LACTATED RINGERS 1,000 ML IV SCH (11:21)
[2023-12-13] MEDS: KETOROLAC 15 MG/ML 1 ML VIAL IVP PRN (11:22)
[2023-12-13] MEDS: DEXAMETHASONE SOD PHOSPHATE 10 MG/ML 1 ML VIAL IV PRN (11:22)
[2023-12-13] MEDS: FAMOTIDINE 20 MG/2 ML VIAL IVP PRN (11:22)
[2023-12-13] MEDS: ONDANSETRON 4 MG/2 ML VIAL IVP ONE (11:22)
[2023-12-13] MEDS: oxyCODONE ER 10 MG TAB.ER.12H PO PRN (11:23)
[2023-12-13] MEDS: DOCUSATE 100 MG CAP PO PRN (11:23)
[2023-12-13] MEDS: MIDAZOLAM 2 MG/2 ML VIAL IVP ONE (11:36)
[2023-12-13] MEDS: fentaNYL (PF) 50 MCG/ML 2 ML AMP IVP ONE (11:36)
--- NOTE | 2023-12-13 12:26 | P.ANPRN ---
Procedure Note - Anesthesia - Nerve Block Performed Right [place] Single Date of Procedure: 12/13/23 Procedure Start Time: 11:35 Procedure Stop Time: 11:46 Location of Patient: PreOp Indication: Acute Post-Operative Pain, Analgesia, Requested by Surgeon Specifically requested for management of pain by DrSusanne: Jose Luis Curry Sedation Type: Sedate with meaningful contact maintained Preparation: Sterile Prep Position: Supine Catheter: None Needle Types: Pajunk Needle Gauge: 21 Ultrasound used to visualize needle placement: Yes Ultrasound used to observe medication spread: Yes Injectate: 0.5% Ropivacaine (see comment for volume) (30 cc plus Decadrone 4 mg) Blood Aspirated: No Pain Paresthesia on Injection Noted: No Resistance on Injection: Normal Image Stored and Saved: Yes Events: Uneventful and Well Tolerated
[2023-12-13] MEDS ORDERED: fentaNYL (PF) 50 MCG/ML 2 ML AMP ONE (12:45)
[2023-12-13] MEDS ORDERED: SUCCINYLCHOLINE CHLORIDE 200 MG/10 ML VIAL IV ONE (12:45)
[2023-12-13] MEDS ORDERED: SODIUM CHLORIDE 0.9% (PF) 10 ML VIAL ONE (12:45)
[2023-12-13] MEDS ORDERED: ROPIVACAINE 5 MG/ML 30 ML VIAL ONE (12:45)
[2023-12-13] MEDS ORDERED: ROCURONIUM 10 MG/ML (5 ML VIAL) IV ONE (12:45)
[2023-12-13] MEDS ORDERED: PROPOFOL 10 MG/ML 20 ML VIAL IV ONE (12:45)
[2023-12-13] MEDS ORDERED: DEXAMETHASONE SOD PHOSPHATE 4 MG/ML 1 ML VIAL ONE (12:45)
[2023-12-13] MEDS ORDERED: MIDAZOLAM 2 MG/2 ML VIAL ONE (12:45)
[2023-12-13] MEDS ORDERED: TRANEXAMIC 1,000 MG/100ML-NACL PREMIX BAG ONE (12:45)
[2023-12-13] MEDS ORDERED: HYDROmorphone (PF) 1 MG/ML ONE (12:45)
[2023-12-13] MEDS ORDERED: LIDOCAINE 1% INJ 10MG/ML (20 ML MDV) ONE (12:45)
[2023-12-13] MEDS ORDERED: GLYCOPYRROLATE 0.2 MG/ML 2 ML VIAL ONE (12:45)
[2023-12-13] MEDS ORDERED: ePHEDrine 50 MG/ML 1 ML VIAL ONE (12:45)
[2023-12-13] MEDS ORDERED: NEOSTIGMINE 1 MG/ML 10 ML VIAL ONE (12:45)
[2023-12-13] MEDS ORDERED: PHENYLEPHRINE 10 MG/ML VIAL ONE (12:45)
[2023-12-13] MEDS: ROPIVACAINE/EPI/CLONIDINE/KET 50 ML SYRINGE MISCELLANE PRN (13:24)
[2023-12-13] MEDS ORDERED: NALOXONE 0.4 MG/ML 1 ML VIAL IV PRN (15:03)
[2023-12-13] MEDS ORDERED: MAGNESIUM HYDROXIDE 2,400 MG/30 ML CUP PO PRN (15:03)
--- NOTE | 2023-12-13 15:03 | P.OP ---
Date of Procedure: 12/13/23 Preoperative Diagnosis: Severe right hip osteoarthritis Postoperative Diagnosis: Same Procedure(s) Performed: Right direct anterior total hip arthroplasty Implants: 1. Nice Trident II Acetabular Cup, Size #48 2. Abby Insignia Size #5 Femoral Stem, Standard Offset 3. Dual Mobility OD 38 mm, ID 22.2 mm, +0 mm neck Anesthesia: GETA, regional Surgeon: Jose Luis Curry Reverse Unit Operator #1: Hector Brunner Estimated Blood Loss (ml): 200 IV fluids (ml): 1,000 Pathology: none sent Condition: stable Disposition: PACU Indications for Procedure: I had a long discussion with the patient in the office on the potential risks and complications of an elective total hip replacement through a direct anterior approach. Risks discussed include, but are certainly not limited to, risks from anesthesia, superficial infection requiring local wound care or antibiotics, deep jaquan-prosthetic joint infection and the treatment required to eradicate infection, intraoperative fracture, postoperative periprosthetic fracture, damage to local blood vessels or nerves particularly the lateral femoral cutaneous nerve, delayed wound healing requiring local wound care or possibly surgical debridement, hip dislocation, leg length discrepancy, soft tissue irritation around the total hip implant such as iliopsoas tendinitis or trochanteric bursitis, wear and osteolysis from the implants, squeaking or audible noises, groin pain, thigh pain, heterotopic ossification, stiffness, aseptic loosening of the implants, dissatisfaction with surgical outcome, need for revision surgery, DVT, PE, swelling of the operative extremity, acute coronary event, stroke, failure to thrive, and possibly loss of life or limb. The patient understands that while these are the most common complications after an elective hip replacement there are certainly other less common complications possible. They were given ample time to ask questions regarding the potential complications of a hip replacement. Following our discussion the patient provided their verbal and written consent to go forward with an elective total hip replacement. Operative Findings: severe right hip osteoarthritis Description of Procedure: The patient was identified in the preoperative holding area and the correct hip was marked with my initials. I reviewed the procedure and consent with the patient. All of their questions were answered. The patient was then brought back into the operating room by anesthesia. While on the [facility] anesthesia was administered by the anesthesia team. Preoperative antibiotics and tranexamic acid were also given. After the patient was under anesthesia I examined their ankles to determine their preoperative leg length discrepancy. The skin over the anterior aspect of the hip was shaved to remove hair over the site of planned incision. Both feet and ankles were padded with webril and boots for the [place] were applied. The patient was then carefully transferred onto the [place] table. A perineal post was immediately placed. The arms were placed on arm holders and were well-padded. Both boots were secured to the spars on the [place] table. The patient was positioned so that the pelvis was centered over the post. Nonsterile drapes were applied. A timeout was performed identifying the correct patient, operative extremity, and procedure. At this point fluoroscopy was brought in to take preoperative images of the pelvis and operative hip. Using the standing AP pelvis from the office as a template, a comparable image was obtained with fluoroscopy. A metallic bar was used to create a bi-ischial line for use as a reference to leg length adjustments during the procedure. Global offset was also measured on both the operative and nonoperative leg. Fl uoroscopy was then brought out and a pre-scrub using a chlorhexidine scrub brush was performed. The operative limb was then prepped and draped in the standard sterile fashion. An anterior longitudinal incision was made lateral and distal to the ASIS. The skin and subcutaneous tissues were incised sharply. The underlying tensor fascia was identified and incised in its midportion. The fascia was dissected free from the underlying muscle and the muscle belly was retracted. A blunt tipped cobra retractor was placed over the superior neck under the muscle fibers of the gluteus minimus. The deep enveloping fascia of the tensor was incised. The anterior leash of vessels were then identified and cauterized. The fascia between the rectus and the capsule was then incised and the pre-capsular fat was excised. A second Cobra was placed inferior to the neck. The interval between the rectus and iliocapsularis and the hip capsule was developed and a retractor was placed carefully over the anterior rim of the acetabulum. A T-shaped anterior capsulotomy was performed. The superior capsular leaflet was left in place in the inferior capsular flap was excised. The Cobra retractors were p laced intracapsularly. We then made a femoral neck osteotomy according to preoperative and intraoperative templating and confirmed the level of the osteotomy using fluoroscopic imaging. The femoral head was removed, passed off to the back table, and sized. The superior capsular flap was excised. Retractors were placed circumferentially exposing the acetabulum. We then circumferentially debrided the acetabulum free of labrum and osteophytes. The pulvinar was removed to fully visualize the cotyloid fossa. We then sequentially reamed to achieve peripheral fit and excellent bleeding subchondral bone. The socket was thoroughly irrigated. The acetabular component was impacted into the appropriate position using fluoroscopy to guide version, inclination, and depth of insertion taking care to have a comparable image of the AP pelvis to the standing image taken in the office. An excellent press-fit was achieved and final position was confirmed using fluoroscopy. The press fit was augmented with bony cancellus dome screws. The liner was then impacted into the socket. Attention was then turned to the femur. The remnant dorsal lateral capsule was excised. The short external rotators were visible and protected. A bone hook was used to confirm appropriate translation of the trochanter away from the acetabulum. The leg was then extended and adducted and the bone hook was used to elevate the femur for broaching. A box osteotome and blunt tipped canal sound was then utilized to gain access to the femoral canal. We then sequentially broached the femur in appropriate anteversion until excellent torsional stability was achieved. The neck cut was brought flush to the trial broach with a calcar planar. A trial neck and head were then placed onto the broach and the hip was atraumatically reduced under direct visualization. External rotation to 90 was performed to assess stability. Fluoroscopy was brought in. An AP and lateral fluoroscopic image of the proximal femur was obtained to assess position and fill of the trial broach. An AP of the pelvis was then obtained and matched to the preoperative image taken. A bi-ischial bar was then placed and measurements were taken to assess changes in length and offset. The hip was then carefully dislocated, the proximal femur was exposed, and the trial implants were removed. The wound and proximal femur was thoroug hly irrigated using sterile saline and pulsatile lavage. The final femoral implant was dispensed and gently tapped into place generating an excellent press-fit. The trunnion was cleansed and the final head was tapped into place to engage the Vyas taper. The acetabulum was irrigated and visualized to be free of debris. The hip was carefully reduced. Stability was checked clinically with external rotation to 90 and there was no evidence of instability. Final fluoroscopic images were taken. The wound was then thoroughly irrigated and soaked with a dilute Betadine rinse for 3 minutes. 3 L of sterile saline was irrigated through the wound using pulsatile lavage. Local anesthetic cocktail was injected into the soft tissues around the surgical field. The wound was then closed in layers. A sterile dressing was placed over the surgical incision. The drapes were taken down and the patient was carefully transferred off of the [place] table. Following removal of the boots the leg john gths felt acceptable. The patient was then taken to recovery room having tolerated the procedure well. Hector Brunner PA-C was required as a skilled assistant statistician due to the complexity of surgery for patient positioning, draping, exposure, retraction, closure of wound and application of dressing. PLAN: The patient can weight-bear as tolerated on the operative extremity. DVT prophylaxis with aspirin 81 mg twice a day based on preoperative risk stratification. Physical therapy for gait training. Leave surgical dressing in place. Internal medicine for perioperative medical management.
--- NOTE | 2023-12-13 15:08 | XR ---
Fluoroscopy History: M16.11 OA RIGHT HIP RT HIP ARTHROPLASTY. 57 SECS FL. 2.5666 DAP
--- NOTE | 2023-12-13 15:29 | FL ---
EXAMINATION TYPE: FL guidance operating room Intraoperative/procedural fluoroscopic services were pro vided. Total fluoroscopy time is 57 seconds with a total of 6 submitted images to PACS. Please see th e operative/procedural note for further details. DAP: 2.5673. Fluoroscopy History: M16.11 OA RIGHT HIP RT HIP ARTHROPLASTY. 57 SECS FL. .5673 DAP
[2023-12-13] MEDS: DEXAMETHASONE SOD PHOSPHATE 4 MG/ML 1 ML VIAL IV ONE (18:16)
[2023-12-13] MEDS: ONDANSETRON 4 MG/2 ML VIAL IVP PRN (19:01)
[2023-12-13] MEDS: SODIUM CHLORIDE 0.9% 1,000 ML IV SCH (20:45)
[2023-12-13] MEDS: ASPIRIN 81 MG PO SCH (20:45)
[2023-12-13] MEDS: SENNOSIDES-DOCUSATE SODIUM 1 EACH TAB PO SCH (20:45)
[2023-12-13] MEDS: HYDROmorphone 0.5 MG/0.5 ML SYRINGE IVP PRN (23:42)
[2023-12-14] MEDS: HYDROcodone/APAP 10-325MG 1 EACH TAB PO PRN (05:23)
[2023-12-14 08:39] LABS: Basophils # (A) 0.02 X 10*3/uL (0.00-0.10); Basophils % (A) 0.1 %; Eosinophils # (A) 0 X 10*3/uL (0.04-0.35); Eosinophils % (A) 0 %; HCT 32.7 % (37.2-46.3); HGB 10.4 g/dL (12.0-15.0); Lymphocytes # (A) 0.54 X 10*3/uL (0.90-5.00); Lymphocytes % (A) 3.1 %; MCH 31.1 pg (27.0-32.0); MCHC 31.8 g/dL (32.0-37.0); MCV 97.9 FL (80.0-97.0); Mean Platelet Volume 10.9 FL (9.5-12.2); Monocytes # (A) 1.48 X 10*3/uL (0.20-1.00); Monocytes % (A) 8.4 %; NRBC Per 100 WBC 0 X 10*3/uL (0.00-0.01); Neutrophils # (A) 15.44 X 10*3/uL (1.80-7.70); Neutrophils % (A) 87.7 %; Platelet Count 238 X 10*3/uL (140-440); RBC 3.34 X 10*6/uL (4.10-5.20); RDW 12.7 % (11.5-14.5)
--- NOTE | 2023-12-14 08:39 | P.PN ---
Subjective Progress Note Date: 12/14/23 Principal diagnosis: Status post right direct anterior total hip arthroplasty No acute events overnight. Patient is doing well this morning. The pain in their hip is mild. They have walked to the bathroom with a walker and assistance. They deny chest pain or shortness of breath. Objective - Vital Signs Vital signs: Vital Signs Temp 98.1 F 12/14/23 06:55 Pulse 96 12/14/23 06:55 Resp 17 12/14/23 06:55 BP 91/53 12/14/23 06:55 Pulse Ox 97 12/14/23 08:12 FiO2 Intake & Output 12/13/23 12/14/23 12/14/23 18:59 06:59 18:59 Intake Total 2550 Output Total 200 Balance 2350 Weight 78.6 kg Intake: IV 2550 Output: Estimated Blood Loss 200 Other: # Voids 2 - Exam Patient is resting comfortably in bed. No apparent distress. They are awake, alert and able to answer questions. On inspection the surgical right hip dressing is intact, there is no drainage or strikethrough. The skin surrounding the dressing is free of erythema. There is mild swelling in the operative thigh. Operative femoral nerve function is intact. The patient is able to actively plantarflex and dorsiflex their operative ankle and toes. Their operative foot is pink and warm to touch. Assessment and Plan Assessment: Postop day 1 status post right direct anterior total hip arthroplasty Plan: Weight-bear as tolerated on the operative extremity. Use a walker to ambulate. Leave surgical dressing in place. Physical therapy for gait training and mobilization. Internal medicine for perioperative medical management. Disposition: Patient will work with physical therapy today and pending evaluation may go home tonight or tomorrow. Start form completed. Order for walker with seat completed.
[2023-12-14] MEDS: hydrOXYzine pamoate 25 MG CAP PO PRN (09:34)
--- NOTE | 2023-12-14 10:27 | P.CONS ---
History of Present Illness - Reason for Consult Consult date: 12/14/23 Medical management Requesting physician: Jose Luis Curry - History of Present Illness this is 68-year-old female patient of Dr. Mcneil who presented for an elective right hip arthroplasty with Dr. Curry on 12/13/2023. Patient has a history of essential hypertension, hyperlipidemia, headaches, anxiety and depression. Patient is currently postop day 1. Patient reports some pain to right hip site. Patient denies any chest pain or shortness of breath. Patient denies nausea vomiting or diarrhea. Patient denies any urinary burning or frequency.current vital signs temp 98.1, heart rate 96, respiratory rate 17, blood pressure 91/53 with a pulse ox of 97% on 2 L. Repeat labs ordered for a.m. Review of Systems please refer to HPI otherwise unremarkable Past Medical History Past Medical History: GERD/Reflux, Hyperlipidemia, Hypertension, Osteoarthritis (OA) Additional Past Medical History / Comment(s): Nephrolithiasis, ANXIETY/DEPRESSION , MIGRAINS History of Any Multi-Drug Resistant Organisms: None Reported Past Surgical History: Orthopedic Surgery, Tubal Ligation Additional Past Surgical History / Comment(s): deviated septum, left shoulder , rt wrist multiple fx's from fall injury-hardwire inserted and removed, Anterior total right hip Past Anesthesia/Blood Transfusion Reactions: No Reported Reaction Additional Past Anesthesia/Blood Transfusion Reaction / Comm: No hx of blood transfusion. Mother had difficulty coming out of anesthesia. Pt-Difficult intubation -surgery @[facility] 2019 during wrist surgery. "Dr. Curry told me I was a difficult intubation." Past Psychological History: Anxiety, Depression Smoking Status: Former smoker Past Alcohol Use History: Rare Additional Past Alcohol Use History / Comment(s): Started smoking late , 05/25ppd, quit 2003 Past Drug Use History: None Reported - Past Family History Brother(s) Family Medical History: Cancer Additional Family Medical History / Comment(s): Colon cancer Medications and Allergies Home Medications Medication Instructions Recorded Confirmed Type SUMAtriptan succinate [Imitrex] 100 mg PO TID PRN 11/25/14 12/13/23 History buPROPion HCL [Wellbutrin XL] 300 mg PO HS 11/12/18 12/13/23 History Advil(Unknown Dose) 1 dose PO Q8H 12/07/23 12/13/23 History Aspirin EC [Ecotrin Low Dose] 81 mg PO QAM 12/07/23 12/13/23 History Rosuvastatin [Crestor] 20 mg PO HS 12/07/23 12/13/23 History Vit D3 Calcium(Unknown Dose) 1 dose PO QAM 12/07/23 12/13/23 History lisinopriL [Zestril] 10 mg PO QAM 12/07/23 12/13/23 History Aspirin 81 mg PO BID #60 tab 12/13/23 Rx Diclofenac Sodium [Voltaren] 75 mg PO BID #60 tab 12/13/23 Rx Docusate [Colace] 100 mg PO BID #60 capsule 12/13/23 Rx HYDROcodone/APAP 5-325MG [[place] 1 - 2 tab PO Q6HR PRN #32 tab 12/13/23 Rx 5-325] Omeprazole [PriLOSEC] 40 mg PO DAILY #30 cap 12/13/23 Rx Allergies Allergy/AdvReac Type Severity Reaction Status Date / Time No Known Allergies Allergy Verified 12/13/23 11:20 Physical Exam Vitals: Vital Signs Temp Pulse Resp BP Pulse Ox 12/14/23 08:12 97 12/14/23 06:55 98.1 F 96 17 91/53 97 12/14/23 05:09 97.5 F L 87 94/58 12/14/23 03:22 98/50 12/14/23 03:07 97.3 F L 84 83/51 95 12/14/23 01:36 97.4 F L 73 18 85/54 98 12/13/23 23:19 97.4 F L 12/13/23 22:22 97.6 F 12/13/23 20:13 96.1 F L 71 102/68 100 12/13/23 20:00 97.4 F L 12/13/23 19:58 66 107/70 99 12/13/23 19:43 70 116/70 100 12/13/23 19:28 67 107/72 98 12/13/23 19:13 66 111/73 99 12/13/23 19:08 96.4 F L 12/13/23 18:58 80 131/83 96 12/13/23 18:43 70 126/77 97 12/13/23 18:28 69 126/77 97 12/13/23 18:17 96.4 F L 70 17 122/72 96 12/13/23 17:45 62 16 108/59 98 12/13/23 17:30 65 16 110/61 98 12/13/23 17:15 71 16 119/65 98 12/13/23 17:00 62 16 126/69 98 12/13/23 16:45 69 16 103/57 92 L 12/13/23 16:30 63 16 136/73 94 L 12/13/23 16:15 64 16 106/57 97 12/13/23 16:00 65 14 108/57 97 12/13/23 15:45 97.8 F 78 14 142/73 98 12/13/23 11:48 77 16 124/65 98 12/13/23 10:57 97.5 F L 72 18 131/73 97 Intake and Output 12/13/23 12/14/23 12/14/23 22:59 06:59 14:59 Intake Total 500 Output Total 200 Balance 300 Intake: IV 500 Output: Estimated Blood Loss 200 Other: Voiding Method Toilet # Voids 2 1 Weight 78.6 kg Head normocephalic Neck supple Lungs clear to auscultation bilaterally no wheezing or crackles Heart regular rate and rhythm S1-S2, no rub or gallop Abdomen is soft nontender nondistended positive bowel sounds no hepatosplenomegaly Extremities no edema. Right hip dressing clean dry and intact Neuro alert and orientated to 3 Results CBC & Chem 7: 12/14/23 05:52 Labs: Abnormal Lab Results - Last 24 Hours (Table) 12/14/23 Range/Units 05:52 WBC 17.60 H (4.50-10.00) X 10*3/uL RBC 3.34 L (4.10-5.20) X 10*6/uL Hgb 10.4 L (12.0-15.0) g/dL Hct 32.7 L (37.2-46.3) % MCV 97.9 H (80.0-97.0) FL MCHC 31.8 L (32.0-37.0) g/dL Immature Gran # 0.12 H (0.00-0.04) X 10*3/uL Neutrophils # 15.44 H (1.80-7.70) X 10*3/uL Lymphocytes # 0.54 L (0.90-5.00) X 10*3/uL Monocytes # 1.48 H (0.20-1.00) X 10*3/uL Eosinophils # 0 L (0.04-0.35) X 10*3/uL Assessment and Plan Assessment: 1. Status post right hip arthroplasty on 12/13/2023 2. History of essential hypertension 3. History of anxiety and depression 4. History of hyperlipidemia 5. History of migraines Thank you for this consultation we will continue to follow closely throughout stay Repeat labs ordered for a.m. Time with Patient: Greater than 30 (Greater than 60% of the total time spent in counseling and coordination of care)
[2023-12-14] MEDS: SODIUM CHLORIDE 0.9% 500 ML 500 ML IV ONE ×4 (11:39→17:32)
[2023-12-14 12:50] LABS: Appearance,Urine Clear (Clear); Bilirubin,Urine Negative (Negative); Blood,Urine Negative (Negative); Color,Urine Colorless; Glucose,Urine (UA) Negative (Negative); Ketones,Urine Negative (Negative); Leukocyte Esterase,Urine Negative (Negative); Nitrite,Urine Negative (Negative); PH, Urine 6.5 (5.0-8.0); Protein,Urine Negative (Negative); Specific Gravity,Urine 1.004 (1.001-1.035); Urobilinogen,Urine <2.0 mg/dL (<2.0)
[2023-12-14] MEDS: SODIUM CHLORIDE 0.9% 1,000 ML IV STA (17:33)
[2023-12-14 18:19] LABS: ALT 19 U/L (4-34); AST 43 U/L (14-36); African American GFR (CKD) 82 (>60 ml/min/1.73 sqM); Albumin 2.7 g/dL (3.5-5.0); Albumin/Globulin Ratio 1.7; Alkaline Phosphatase 37 U/L (38-126); Anion Gap 1 mmol/L; Blood Urea Nitrogen 13 mg/dL (7-17); Calcium 7.9 mg/dL (8.4-10.2); Carbon Dioxide 26 mmol/L (22-30); Chloride 112 mmol/L (98-107); Globulin 1.6 g/dL; Glucose 107 mg/dL (74-99); Non-African American GFR(CKD) 71 (>60 ml/min/1.73 sqM); Sodium 139 mmol/L (137-145); Total Bilirubin 0.4 mg/dL (0.2-1.3); Total Protein 4.3 g/dL (6.3-8.2)
[2023-12-14 18:33] LABS: Basophils % (A) 0 %; Eosinophils % (A) 0 %; HCT 30.5 % (34.0-46.0); HGB 9.6 gm/dL (11.4-16.0); Hypochromasia Slight; Lymphocytes % (A) 9 %; MCH 30.6 pg (25.0-35.0); MCHC 31.4 g/dL (31.0-37.0); MCV 97.6 fL (80.0-100.0); Mean Platelet Volume 8.6; Monocytes % (A) 9 %; Neutrophils % (A) 81 %; Platelet Count 192 k/uL (150-450); RBC 3.13 m/uL (3.80-5.40); RDW 13.2 % (11.5-15.5); WBC 11.2 k/uL (3.8-10.6)
[2023-12-14] MEDS: ATORVASTATIN 40 MG TAB PO SCH (20:14)
[2023-12-14] MEDS: buPROPion XL 300 MG TAB.ER.24H PO SCH (20:14)
[2023-12-14] MEDS: ACETAMINOPHEN TAB 325 MG TAB PO PRN (21:45)
[2023-12-14] MEDS: HYDROcodone/APAP 7.5-325MG 1 EACH TAB PO PRN (22:55)
--- NOTE | 2023-12-15 01:32 | XR ---
EXAM: XR Chest, 1 View CLINICAL HISTORY: ITS.REASON XR Reason: low O2 saturation. TECHNIQUE: Frontal view of the chest. COMPARISON: No relevant prior studies available. FINDINGS: Lungs: LEFT base consolidation, correlate for atelectasis versus mild pneumonia. Pleural space: Unremarkable. No pneumothorax. Heart: Unremarkable. No cardiomegaly. Mediastinum: Unremarkable. Normal mediastinal contour. Bones/joints: Unremarkable. No acute fracture. IMPRESSION: LEFT base consolidation, correlate for atelectasis versus mild pneumonia.
[2023-12-15 08:25] LABS: Basophils # (A) 0.05 X 10*3/uL (0.00-0.10); Basophils % (A) 0.5 %; Eosinophils # (A) 0 X 10*3/uL (0.04-0.35); Eosinophils % (A) 0 %; HCT 27.6 % (37.2-46.3); HGB 8.6 g/dL (12.0-15.0); Lymphocytes # (A) 0.92 X 10*3/uL (0.90-5.00); Lymphocytes % (A) 8.9 %; MCH 31.2 pg (27.0-32.0); MCHC 31.2 g/dL (32.0-37.0); Mean Platelet Volume 11.1 FL (9.5-12.2); Monocytes # (A) 1.48 X 10*3/uL (0.20-1.00); Monocytes % (A) 14.4 %; NRBC Per 100 WBC 0 X 10*3/uL (0.00-0.01); Neutrophils # (A) 7.79 X 10*3/uL (1.80-7.70); Neutrophils % (A) 75.8 %; Platelet Count 172 X 10*3/uL (140-440); RBC 2.76 X 10*6/uL (4.10-5.20); RDW 13.5 % (11.5-14.5); WBC 10.28 X 10*3/uL (4.50-10.00)
[2023-12-15] MEDS: lisinopriL 10 MG TAB PO SCH (09:14)
[2023-12-15 10:27] LABS: ALT 22 U/L (8-44); AST 44 U/L (13-35); Albumin 2.9 g/dL (3.8-4.9); Alkaline Phosphatase 43 U/L (41-126); Calcium 7.7 mg/dL (8.7-10.3); Carbon Dioxide 24.5 mmol/L (21.6-31.8); Chloride 110 mmol/L (96-109); Glucose 111 mg/dL (70-110); Potassium 4.2 mmol/L (3.5-5.5); Sodium 140 mmol/L (135-145); Total Bilirubin 0.4 mg/dL (0.3-1.2); Total Protein 3.9 g/dL (6.2-8.2)
--- NOTE | 2023-12-15 10:41 | P.PN ---
Subjective Progress Note Date: 12/15/23 this is 68-year-old female patient of Dr. Mcneil who presented for an elective right hip arthroplasty with Dr. Curry on 12/13/2023. Patient has a history of essential hypertension, hyperlipidemia, headaches, anxiety and depression. Patient is currently postop day 1. Patient reports some pain to right hip site. Patient denies any chest pain or shortness of breath. Patient denies nausea vomiting or diarrhea. Patient denies any urinary burning or frequency.current vital signs temp 98.1, heart rate 96, respiratory rate 17, blood pressure 91/53 with a pulse ox of 97% on 2 L. Repeat labs ordered for a.m. On 12/15/2023 patient is alert and oriented 3. Patient had elevated temp of 101 throughout the night. Patient also continued to be hypotensive and slightly tachycardic.urinary analysis was negative. Chest x-ray did show possible pneumonia. Concerns of aspiration pneumonia patient was started on IV Zosyn. At this time will consult infectious disease services. Per radiology services also consulted due to ongoing hypotension and tachycardia. At this time blood pressure does seem slightly improved. Patient denies any nausea vomiting or diarrhea. Patient denies chest pain or shortness of breath. Patient denies any urinary burning or frequency. Current vital signs temp 99.3, heart rate 96, respiratory rate 17, blood pressure 99/61 with pulse ox 97% on 2 L Objective - Vital Signs Vital signs: Vital Signs Temp 99.3 F 12/15/23 07:15 Pulse 96 12/15/23 07:15 Resp 17 12/15/23 07:15 BP 99/61 12/15/23 07:15 Pulse Ox 96 12/15/23 07:52 FiO2 Intake & Output 12/14/23 12/15/23 12/15/23 18:59 06:59 18:59 Other: Voiding Method Toilet # Voids 3 2 - Exam physicalHead normocephalic Neck supple Lungs clear to auscultation bilaterally no wheezing or crackles Heart regular rate and rhythm S1-S2, no rub or gallop Abdomen is soft nontender nondistended positive bowel sounds no hepatosplenomegaly Extremities no edema. Right hip dressing clean dry and intact Neuro alert and orientated to 3 - Labs CBC & Chem 7: 12/15/23 06:37 12/15/23 06:37 Labs: Abnormal Lab Results - Last 24 Hours (Table) 12/14/23 12/14/23 12/15/23 Range/Units 17:56 17:56 06:37 WBC 11.2 H 10.28 H (3.8-10.6) k/uL RBC 3.13 L 2.76 L (3.80-5.40) m/uL Hgb 9.6 L 8.6 L (11.4-16.0) gm/dL Hct 30.5 L 27.6 L (34.0-46.0) % MCV 100.0 H (80.0-97.0) FL MCHC 31.2 L (32.0-37.0) g/dL Neutrophils # 9.0 H 7.79 H (1.3-7.7) k/uL Monocytes # 1.48 H (0.20-1.00) X 10*3/uL Eosinophils # 0 L (0.04-0.35) X 10*3/uL Chloride 112 H (98-107) mmol/L Glucose 107 H (74-99) mg/dL Calcium 7.9 L (8.4-10.2) mg/dL AST 43 H (14-36) U/L Alkaline Phosphatase 37 L (38-126) U/L Total Protein 4.3 L (6.3-8.2) g/dL Albumin 2.7 L (3.5-5.0) g/dL Globulin (1.6-3.3) g/dL 12/15/23 Range/Units 06:37 WBC (3.8-10.6) k/uL RBC (3.80-5.40) m/uL Hgb (11.4-16.0) gm/dL Hct (34.0-46.0) % MCV (80.0-97.0) FL MCHC (32.0-37.0) g/dL Neutrophils # (1.3-7.7) k/uL Monocytes # (0.20-1.00) X 10*3/uL Eosinophils # (0.04-0.35) X 10*3/uL Chloride 110 H (98-107) mmol/L Glucose 111 H (74-99) mg/dL Calcium 7.7 L (8.4-10.2) mg/dL AST 44 H (14-36) U/L Alkaline Phosphatase (38-126) U/L Total Protein 3.9 L (6.3-8.2) g/dL Albumin 2.9 L (3.5-5.0) g/dL Globulin 1.0 L (1.6-3.3) g/dL Assessment and Plan Assessment: 1. Status post right hip arthroplasty on 12/13/2023 2. History of essential hypertension 3. History of anxiety and depression 4. History of hyperlipidemia 5. History of migraines 6. Febrile concerns of possible pneumonia. Patient started on IV Zosyn 7. Hypotension. Cardiology service is consulted patient was given multiple boluses Thank you for this consultation we will continue to follow closely throughout stay Repeat labs ordered for a.m. patient started on IV Zosyn Blood and urine cultures ordered Infectious disease and cardiology services consulted Continue to monitor patient at this time
[2023-12-15] MEDS: PIPERACILLIN-TAZOBACTAM 3.375 GM in SODIUM CHLORIDE 0.9% 100 ML IVPB SCH (11:29)
--- NOTE | 2023-12-15 11:43 | P.PN ---
Subjective Progress Note Date: 12/15/23 Principal diagnosis: Status post right direct anterior total hip arthroplasty Patient states they are doing well this morning. The pain in their hip is mild. They have walked to the bathroom with a walker and assistance. They worked with physical therapy yesterday. They deny chest pain or shortness of breath. A chest x-ray was obtained by medicine and medicine ordered an tibiotics. Objective - Vital Signs Vital signs: Vital Signs Temp 99.3 F 12/15/23 07:15 Pulse 96 12/15/23 07:15 Resp 17 12/15/23 07:15 BP 99/61 12/15/23 07:15 Pulse Ox 96 12/15/23 07:52 FiO2 Intake & Output 12/14/23 12/15/23 12/15/23 18:59 06:59 18:59 Other: Voiding Method Toilet # Voids 3 2 - Exam Patient is resting comfortably in bed. No apparent distress. They are awake, alert and able to answer questions. On inspection the surgical right hip dressing is intact, there is no drainage or strikethrough. The skin surrounding the dressing is free of erythema. There is mild swelling in the operative thigh. Operative femoral nerve function is intact. The patient is able to actively plantarflex and dorsiflex their operative ankle and toes. Their operative foot is pink and warm to touch. - Labs CBC & Chem 7: 12/15/23 06:37 12/15/23 06:37 Labs: Abnormal Lab Results - Last 24 Hours (Table) 12/14/23 12/14/23 12/15/23 Range/Units 17:56 17:56 06:37 WBC 11.2 H 10.28 H (3.8-10.6) k/uL RBC 3.13 L 2.76 L (3.80-5.40) m/uL Hgb 9.6 L 8.6 L (11.4-16.0) gm/dL Hct 30.5 L 27.6 L (34.0-46.0) % MCV 100.0 H (80.0-97.0) FL MCHC 31.2 L (32.0-37.0) g/dL Neutrophils # 9.0 H 7.79 H (1.3-7.7) k/uL Monocytes # 1.48 H (0.20-1.00) X 10*3/uL Eosinophils # 0 L (0.04-0.35) X 10*3/uL Chloride 112 H (98-107) mmol/L Glucose 107 H (74-99) mg/dL Calcium 7.9 L (8.4-10.2) mg/dL AST 43 H (14-36) U/L Alkaline Phosphatase 37 L (38-126) U/L Total Protein 4.3 L (6.3-8.2) g/dL Albumin 2.7 L (3.5-5.0) g/dL Assessment and Plan Assessment: Postop day 2 status post right direct anterior total hip arthroplasty Plan: Weight-bear as tolerated on the operative extremity. Use a walker to ambulate. Leave surgical dressing in place. Physical therapy for gait training and mobilization. Internal medicine for perioperative medical management. Start form completed. Order for walker with seat completed. Disposition: The patient is currently being treated for atelectasis versus pneumonia with IV antibiotics by medicine. Medicine consulted cardiology and infectious disease. Patient is cleared for discharge from an orthopedic standpoint and may discharge home pending medical clearance.
--- NOTE | 2023-12-15 12:54 | P.CRDCN ---
History of Present Illness Consult date: 12/15/23 Reason for Consult (text): Tachycardia, hypotension History of present illness: This is a 68-year-old female patient of Dr. Leblanc with past medical history of hypertension, hyperlipidemia. We have been asked to evaluate the patient for hypotension and tachycardia. Patient underwent right anterior total hip arthroplasty on 12/12. Following that patient was hypotensive with blood pressures systolic in the 90s and heart rate running in the 90s to 117. Patient states that she had significant pain in the hip and because her blood pressure was low, she was not given any pain medications. Regarding the hypotension, she states she did not have any lightheadedness, dizziness and did not feel any palpitations. Patient did receive a [place] 7.5 and pain is better but still there. She received IV fluid bolus 500 x 4 and following that her pulse ox dropped to 80%. SHe is currently on O2 at 2L with PO 97%. Patient denies shortness of breath, cough, fever or chills. Temperature max 101. Patient noted to have a drop in hgb 13.7 to 8.6. Patient was seen in the office with Dr. Leblanc on 11/27 for preop clearance. She had an echocardiogram that revealed EF of 55 to 60%. Patient also had a previous Lexiscan stress test that showed no evidence of stress-induced ischemia. EKG ordered. Chest x-ray: left basilar consolidation, correlate for atelectasis vs early pneumonia. Laboratory studies: WBC 10.2, HGB 8.6, creatinine 0.8. K 4.2 Home cardiac medications: asa 81 mg daily, lisinopril 10 mg daily, crestor 20 mg hs. Review Of Systems: At the time of my exam: CONSTITUTIONAL: Denies fever or chills. HEENT: Denies blurred vision, vision changes, or eye pain. Denies hemoptysis CARDIOVASCULAR: Denies chest pain. Denies orthopnea. Denies PND. Denies palpitations RESPIRATORY: Denies shortness of breath. GASTROINTESTINAL: Denies abdominal pain. Denies nausea or vomiting. HEMATOLOGIC: Denies bleeding disorders. GENITOURINARY: Denies any blood in urine. SKIN: Denies puritis. Denies rash. Physical examination: Gen: This is a 68 year-old female sitting in recliner in no acute distress. VS: reviewed HEENT: Head is atraumatic, normocephalic. Pupils equal, round. Sclerae is anicteric. NECK: Supple. No JVD. LUNGS: Diminished. No wheezes or rhonchi. No intercostal retractions. HEART: Regular rate and rhythm. 2/6 systolic murmur. ABDOMEN: Soft No tenderness. EXTREMITIES: No pedal edema. No calf tenderness. DP +2 bilat. NEUROLOGICAL: Patient is awake, alert and oriented x3. Assessment: Postop hypotention and tachycardia related to anemia, anesthesia Hypoxia with drop in PO reading Postop anemia OA s/p right total hip arthroplasty, anterior approach 12/12 Hyperlipidemia HTN Plan: Continue patient's home cardiac medications except hold lisinopril Obtain CTA chest to rule out PE (discussed with Dr. Curry) Obtain EKG, traffic monitor specialist Further recommendations to follow based upon clinical course Thank you kindly for this consultation. Nurse practitioner note has been reviewed, I agree with documented findings and plan of care. Patient was seen and examined. Past Medical History Past Medical History: GERD/Reflux, Hyperlipidemia, Hypertension, Osteoarthritis (OA) Additional Past Medical History / Comment(s): Nephrolithiasis, ANXIETY/DEPRESSION , MIGRAINS History of Any Multi-Drug Resistant Organisms: None Reported Past Surgical History: Orthopedic Surgery, Tubal Ligation Additional Past Surgical History / Comment(s): deviated septum, left shoulder , rt wrist multiple fx's from fall injury-hardwire inserted and removed, Anterior total right hip Past Anesthesia/Blood Transfusion Reactions: No Reported Reaction Additional Past Anesthesia/Blood Transfusion Reaction / Comment(s): No hx of blood transfusion. Mother had difficulty coming out of anesthesia. Pt- Difficult intubation -surgery @[facility] 2019 during wrist surgery. "Dr. Curry told me I was a difficult intubation." Past Psychological History: Anxiety, Depression Smoking Status: Former smoker Past Alcohol Use History: Rare Additional Past Alcohol Use History / Comment(s): Started smoking late 's, 05/25ppd, quit 2003 Past Drug Use History: None Reported - Past Family History Brother(s) Family Medical History: Cancer Additional Family Medical History / Comment(s): Colon cancer Medications and Allergies Home Medications Medication Instructions Recorded Confirmed Type SUMAtriptan succinate [Imitrex] 100 mg PO TID PRN 11/25/14 12/13/23 History buPROPion HCL [Wellbutrin XL] 300 mg PO HS 11/12/18 12/13/23 History Advil(Unknown Dose) 1 dose PO Q8H 12/07/23 12/13/23 History Aspirin EC [Ecotrin Low Dose] 81 mg PO QAM 12/07/23 12/13/23 History Rosuvastatin [Crestor] 20 mg PO HS 12/07/23 12/13/23 History Vit D3 Calcium(Unknown Dose) 1 dose PO QAM 12/07/23 12/13/23 History lisinopriL [Zestril] 10 mg PO QAM 12/07/23 12/13/23 History Aspirin 81 mg PO BID #60 tab 12/13/23 Rx Diclofenac Sodium [Voltaren] 75 mg PO BID #60 tab 12/13/23 Rx Docusate [Colace] 100 mg PO BID #60 capsule 12/13/23 Rx HYDROcodone/APAP 5-325MG [[place] 1 - 2 tab PO Q6HR PRN #32 tab 12/13/23 Rx 5-325] Omeprazole [PriLOSEC] 40 mg PO DAILY #30 cap 12/13/23 Rx Allergies Allergy/AdvReac Type Severity Reaction Status Date / Time No Known Allergies Allergy Verified 12/13/23 11:20 Physical Exam Vitals: Vital Signs Temp Pulse Resp BP Pulse Ox 12/15/23 07:52 96 12/15/23 07:15 99.3 F 96 17 99/61 97 12/15/23 02:23 101/65 12/15/23 02:00 98.9 F 113 H 18 91/61 90 L 12/14/23 22:32 98.9 F 105/75 12/14/23 20:00 101.0 F H 110 H 18 118/73 95 12/14/23 19:59 115/72 12/14/23 18:49 117 H 105/66 93 L 12/14/23 14:09 98.5 F 103 H 19 93/59 95 12/14/23 13:30 109 H 97/62 Intake and Output 12/14/23 12/15/23 12/15/23 22:59 06:59 14:59 Other: # Voids 3 2 Results 12/15/23 06:37 12/15/23 06:37 Cardiac Enzymes 12/14/23 12/15/23 Range/Units 17:56 06:37 AST 43 H 44 H (14-36) U/L CBC 12/14/23 12/15/23 Range/Units 17:56 06:37 WBC 11.2 H 10.28 H (3.8-10.6) k/uL RBC 3.13 L 2.76 L (3.80-5.40) m/uL Hgb 9.6 L 8.6 L (11.4-16.0) gm/dL Hct 30.5 L 27.6 L (34.0-46.0) % Plt Count 192 172 (150-450) k/uL Comprehensive Metabolic Panel 12/14/23 12/15/23 Range/Units 17:56 06:37 Sodium 139 140 (137-145) mmol/L Potassium 4.0 4.2 (3.5-5.1) mmol/L Chloride 112 H 110 H (98-107) mmol/L Carbon Dioxide 26 24.5 (22-30) mmol/L BUN 13 12.0 (7-17) mg/dL Creatinine 0.85 0.8 (0.52-1.04) mg/dL Glucose 107 H 111 H (74-99) mg/dL Calcium 7.9 L 7.7 L (8.4-10.2) mg/dL AST 43 H 44 H (14-36) U/L ALT 19 22 (4-34) U/L Alkaline Phosphatase 37 L 43 (38-126) U/L Total Protein 4.3 L 3.9 L (6.3-8.2) g/dL Albumin 2.7 L 2.9 L (3.5-5.0) g/dL Current Medications Generic Name Dose Route Start Last Admin Trade Name Freq PRN Reason Stop Dose Admin Acetaminophen 650 mg 12/14/23 21:38 12/14/23 21:45 Acetaminophen Tab 325 Mg Tab PO 650 mg Q6HR PRN Administration Fever and/ or Pain Hydrocodone Bitart/Acetaminophen 1 each 12/13/23 15:03 Hydrocodone/Apap 5-325mg 1 Each Tab PO 01/12/24 15:02 Q6HR PRN Pain Scale 1 to 5 Hydrocodone Bitart/Acetaminophen 1 each 12/13/23 15:03 12/14/23 05:23 Hydrocodone/Apap 10-325mg 1 Each Tab PO 01/12/24 15:02 1 each Q6H PRN Administration Pain Scale 6 to 10 Hydrocodone Bitart/Acetaminophen 1 each 12/14/23 22:43 12/15/23 07:01 Hydrocodone/Apap 7.5-325mg 1 Each Tab PO 1 each Q6HR PRN Administration Pain Aspirin 81 mg 12/13/23 21:00 12/15/23 09:20 Aspirin 81 Mg PO 01/12/24 20:59 81 mg BID TAMAR Administration Atorvastatin Calcium 40 mg 12/14/23 21:00 12/14/23 20:14 Atorvastatin 40 Mg Tab PO 40 mg HS TAMAR Administration Bupropion HCl 300 mg 12/14/23 21:00 12/14/23 20:14 Bupropion Xl 300 Mg Tab.Er.24h PO 300 mg HS TAMAR Administration Hydromorphone HCl 0.5 mg 12/13/23 15:03 12/15/23 02:47 Hydromorphone 0.5 Mg/0.5 Ml Syringe IVP 01/12/24 15:02 0.5 mg Q3HR PRN Administration Pain Scale 7 to 10 Hydroxyzine Pamoate 25 mg 12/13/23 15:03 12/14/23 22:55 Hydroxyzine Pamoate 25 Mg Cap PO 01/12/24 15:02 25 mg Q4HR PRN Administration Nausea, Anxiety, Pain Control Lactated Ringer's 1,000 mls @ 20 mls/hr 12/12/23 08:00 12/15/23 03:45 Lactated Ringers IV 01/11/24 07:59 Not Given .Q24H TAMAR Sodium Chloride 1,000 mls @ 100 mls/hr 12/13/23 15:15 12/15/23 03:45 Saline 0.9% IV 01/12/24 15:14 Not Given .Q10H TAMAR Lidocaine HCl 0.1 ml 12/12/23 07:46 Lidocaine 1% (10mg/Ml) For Iv Start INTRADERMA 01/11/24 07:45 PER PROTOCOL PRN IV Start Lisinopril 10 mg 12/15/23 09:00 12/15/23 09:14 Lisinopril 10 Mg Tab PO Not Given QAM TAMAR Magnesium Hydroxide 2,400 mg 12/13/23 15:03 Magnesium Hydroxide 2,400 Mg/30 Ml Cup PO 01/12/24 15:02 DAILY PRN Constipation Naloxone HCl 0.2 mg 12/13/23 15:03 Naloxone 0.4 Mg/Ml 1 Ml Vial IV 01/12/24 15:02 Q2M PRN Opioid Reversal Ondansetron HCl 4 mg 12/13/23 15:03 12/14/23 08:10 Ondansetron 4 Mg/2 Ml Vial IVP 01/12/24 15:02 4 mg Q6HR PRN Administration Nausea And Vomiting Senna/Docusate Sodium 2 each 12/13/23 21:00 12/14/23 20:14 Sennosides-Docusate Sodium 1 Each Tab PO 01/12/24 20:59 2 each HS TAMAR Administration Intake and Output 12/14/23 12/15/23 12/15/23 22:59 06:59 14:59 Other: # Voids 3 2 12/15/23 06:37 12/15/23 06:37
--- NOTE | 2023-12-15 14:24 | CT ---
EXAMINATION TYPE: CT angio chest CT DLP: 354.2 mGycm, Automated exposure control for dose reduction was used. DATE OF EXAM: 12/15/2023 1:55 PM COMPARISON: Chest radiograph from same day. Multiple CTs of the chest with most recent on . CLINICAL INDICATION:Female, 68 years old with history of dyspnea following surgery; postop shortness of breath. TECHNIQUE/CONTRAST: CTA scan of the thorax is performed with IV Contrast, patient injected with 80 mL of Isovue 370, MIP images are created and reviewed these are created on a separate workstation.. FINDINGS: Pulmonary Artery: There is no evidence for a filling defect within the pulmonary vasculature to sugge st acute pulmonary embolism. The pulmonary artery is of normal size. Lungs/Pleura: Small patchy areas of airspace disease are seen in the medial left lower lobe posterior ly. Tiny bilateral pleural effusions are present. Airway: Large airways are patent. Heart: Heart is mildly enlarged. No significant coronary artery disease is appreciated. Vasculature: No evidence of aortic aneurysm. Mediastinum: No gross evidence of adenopathy. Musculoskeletal: No acute osseous abnormalities Soft Tissues: Unremarkable. Lower neck: No significant findings. Upper Abdomen: No significant findings. IMPRESSION: 1. No evidence of pulmonary embolism. 2. Small patchy areas of airspace disease in the medial left lower lobe posteriorly
[2023-12-15 20:36] VITALS: RESP 18
[2023-12-16 04:34] LABS: Basophils % (A) 0 %; Eosinophils % (A) 0 %; HCT 27.1 % (34.0-46.0); HGB 8.8 gm/dL (11.4-16.0); Hypochromasia Slight; Lymphocytes # (A) 0.8 k/uL (1.0-4.8); Lymphocytes % (A) 10 %; MCH 31.4 pg (25.0-35.0); MCHC 32.4 g/dL (31.0-37.0); MCV 96.9 fL (80.0-100.0); Monocytes # (A) 0.7 k/uL (0-1.0); Monocytes % (A) 9 %; Neutrophils # (A) 6.3 k/uL (1.3-7.7); Neutrophils % (A) 79 %; Platelet Count 180 k/uL (150-450); RDW 12.8 % (11.5-15.5); WBC 8.1 k/uL (3.8-10.6)
--- NOTE | 2023-12-16 09:42 | P.DS ---
Providers Date of admission: 12/15/23 14:12 Expected date of discharge: 12/16/23 Attending physician: Jose Luis Curry Consults: 12/13/23 15:03 Consult Physician Routine Consulting Provider: Dilip Paris Consult Reason/Comments: post op medical management Do you want consulting provider notified?: Yes 12/15/23 09:31 Consult Physician Routine Consulting Provider: Kayden Foster Consult Reason/Comments: hypotension, tachycardia Do you want consulting provider notified?: Yes Primary care physician: Shilpi Mcneil - Discharge Diagnosis(es) (1) Primary localized osteoarthritis of right hip Current Visit: Yes Status: Acute (2) Status post total hip replacement, right Current Visit: Yes Status: Acute Hospital Course: This is a 68-year-old female with known history of degenerative arthritis of the right hip. The patient presents for evaluation. After discussion and consideration patient elects to proceed with total hip arthroplasty with direct anterior approach. The patient is seen preoperatively by primary care physician and cleared for surgery. Patient is admitted to [facility] on 12/15/2023 for total hip arthroplasty with direct anterior approach. The procedure is performed without complication or sequelae. The patient is doing well postoperatively. Labs and vital signs are stable on day of discharge. On day of discharge patient's hip incision is healing well. There is minimal erythema. There is no drainage noted at this time. There is minimal soft tissue swelling to the hip and thigh. Patient has full foot and ankle motion without difficulty or pain. Neurovascular status to the lower extremity is intact. Patient is discharged to home in good condition. Please see med rec for accurate list of home medications. Patient Condition at Discharge: Good Plan - Discharge Summary Discharge Rx Participant: Yes New Discharge Prescriptions: New Docusate [Colace] 100 mg PO BID #60 capsule Aspirin 81 mg PO BID #60 tab HYDROcodone/APAP 5-325MG [Kinross 5-325] 1 - 2 tab PO Q6HR PRN #32 tab PRN Reason: Pain Diclofenac Sodium [Voltaren] 75 mg PO BID #60 tab Omeprazole [PriLOSEC] 40 mg PO DAILY #30 cap No Action SUMAtriptan succinate [Imitrex] 100 mg PO TID PRN PRN Reason: Migraine Headache buPROPion HCL [Wellbutrin XL] 300 mg PO HS lisinopriL [Zestril] 10 mg PO QAM Rosuvastatin [Crestor] 20 mg PO HS Advil(Unknown Dose) 1 dose PO Q8H Vit D3 Calcium(Unknown Dose) 1 dose PO QAM Aspirin EC [Ecotrin Low Dose] 81 mg PO QAM Discharge Medication List SUMAtriptan succinate [Imitrex] 100 mg PO TID PRN 11/25/14 [History] buPROPion HCL [Wellbutrin XL] 300 mg PO HS 11/12/18 [History] Advil(Unknown Dose) 1 dose PO Q8H 12/07/23 [History] Aspirin EC [Ecotrin Low Dose] 81 mg PO QAM 12/07/23 [History] Rosuvastatin [Crestor] 20 mg PO HS 12/07/23 [History] Vit D3 Calcium(Unknown Dose) 1 dose PO QAM 12/07/23 [History] lisinopriL [Zestril] 10 mg PO QAM 12/07/23 [History] Aspirin 81 mg PO BID #60 tab 12/13/23 [Rx] Diclofenac Sodium [Voltaren] 75 mg PO BID #60 tab 12/13/23 [Rx] Docusate [Colace] 100 mg PO BID #60 capsule 12/13/23 [Rx] HYDROcodone/APAP 5-325MG [Kinross 5-325] 1 - 2 tab PO Q6HR PRN #32 tab 12/13/23 [Rx] Omeprazole [PriLOSEC] 40 mg PO DAILY #30 cap 12/13/23 [Rx] Follow up Appointment(s)/Referral(s): [facility] [[facility]] - 1-2 Days ([facility] will call you to schedule your in home physical therapy visits. ) Jose Luis Curry MD [Medical Doctor] - 2 Weeks Activity/Diet/Wound Care/Special Instructions: 1. Weight-bear as tolerated on your operative extremity unless instructed otherwise. Use a walker or other assistive device to ambulate. 2. Leave surgical dressing in place. If your dressing becomes saturated with blood, there is drainage, or the dressing becomes loose please contact the office. 3. It is okay to shower with your surgical dressing, but do not submerge in water (no hot tubs, bath's, swimming etc.) 4. Make sure to take her blood clot prevention medication as prescribed (barrett gonzalez, Lashae Xarelto, and Plavix are commonly prescribed medications for blood clot prevention) 5. While taking Kinross or Percocet for pain make sure you're taking a stool softener (Colace) and drink lots of water. 6. Keep all follow-up appointments as scheduled. You will usually be seen in 1-2 weeks following surgery. 7. Please contact the office with any questions or concerns [phone]
[2023-12-16 09:49] VITALS: BP 105/70; PULSE 89; TEMP 98
--- NOTE | 2023-12-16 11:31 | P.PN ---
Subjective Progress Note Date: 12/16/23 This is a 68-year-old female patient who was admitted to the hospital and underwent hip surgery with post operation hypotension and tachycardia and for that reason the patient was seen. Pulmonary embolism was ruled out by CT scan of the chest. Please note that the patient was anemic. December 11, 2023 The patient was seen and evaluated this morning which she is asymptomatic and she is hemodynamically stable with improvement in the blood pressure and the heart rate as well. From the cardiovascular standpoint of view, the patient can be discharged home. Examination is remarkable for regular rhythm with clear breathing sounds bilaterally and no edema was noted in the lower extremities Assessment Status post hip surgery Postoperation hypotension and tachycardia and both improved Multiple comorbid conditions Plan Continue the current medical regimen The patient can be discharged home Objective - Vital Signs Vital signs: Vital Signs Temp 98.0 F 12/16/23 07:16 Pulse 89 12/16/23 07:16 Resp 18 12/16/23 07:16 BP 105/70 12/16/23 07:16 Pulse Ox 97 12/16/23 07:16 FiO2 Intake & Output 12/15/23 12/16/23 12/16/23 18:59 06:59 18:59 Other: Voiding Method Toilet # Voids 1 1 - Labs CBC & Chem 7: 12/16/23 03:24 12/15/23 06:37 Labs: Abnormal Lab Results - Last 24 Hours (Table) 12/16/23 Range/Units 03:24 RBC 2.80 L (3.80-5.40) m/uL Hgb 8.8 L (11.4-16.0) gm/dL Hct 27.1 L (34.0-46.0) % Lymphocytes # 0.8 L (1.0-4.8) k/uL Microbiology - Last 24 Hours (Table) 12/15/23 00:00 Urine Culture - Final Urine,Voided 12/14/23 21:57 Blood Culture - Preliminary Blood
--- NOTE | 2023-12-16 11:54 | P.PN ---
Subjective Progress Note Date: 12/16/23 this is 68-year-old female patient of Dr. Mcneil who presented for an elective right hip arthroplasty with Dr. Curry on 12/13/2023. Patient has a history of essential hypertension, hyperlipidemia, headaches, anxiety and depression. Patient is currently postop day 1. Patient reports some pain to right hip site. Patient denies any chest pain or shortness of breath. Patient denies nausea vomiting or diarrhea. Patient denies any urinary burning or frequency.current vital signs temp 98.1, heart rate 96, respiratory rate 17, blood pressure 91/53 with a pulse ox of 97% on 2 L. Repeat labs ordered for a.m. On 12/15/2023 patient is alert and oriented 3. Patient had elevated temp of 101 throughout the night. Patient also continued to be hypotensive and slightly tachycardic.urinary analysis was negative. Chest x-ray did show possible pneumonia. Concerns of aspiration pneumonia patient was started on IV Zosyn. At this time will consult infectious disease services. Per radiology services also consulted due to ongoing hypotension and tachycardia. At this time blood pressure does seem slightly improved. Patient denies any nausea vomiting or diarrhea. Patient denies chest pain or shortness of breath. Patient denies any urinary burning or frequency. Current vital signs temp 99.3, heart rate 96, respiratory rate 17, blood pressure 99/61 with pulse ox 97% on 2 L On 12/16/2023, patient was seen and examined on the medical floor, she is alert and oriented x 3 in no apparent distress, she is feeling better today, there is no fever or chills no headache or dizziness no chest pain no shortness of breath no cough no nausea or vomiting no abdominal pain no diarrhea no urinary symp toms, CT scan of the chest was negative for pulmonary embolism, however it revealed evidence of a left lower lobe infiltrate, patient also had elevated temperature and elevated white blood count yesterday, she was started on IV Zosyn and improved significantly, patient is being discharged to home today by orthopedic surgery, will add Ceftin 500 mg twice daily for 5 more days to her discharge medications, patient was counseled to return to the hospital if having elevated temperature, cough, or hypotension. Objective - Vital Signs Vital signs: Vital Signs Temp 98.0 F 12/16/23 07:16 Pulse 89 12/16/23 07:16 Resp 18 12/16/23 07:16 BP 105/70 12/16/23 07:16 Pulse Ox 97 12/16/23 07:16 FiO2 Intake & Output 12/15/23 12/16/23 12/16/23 18:59 06:59 18:59 Other: Voiding Method Toilet # Voids 1 1 - Exam physicalHead normocephalic Neck supple Lungs clear to auscultation bilaterally no wheezing or crackles Heart regular rate and rhythm S1-S2, no rub or gallop Abdomen is soft nontender nondistended positive bowel sounds no hepatosplenomegaly Extremities no edema. Right hip dressing clean dry and intact Neuro alert and orientated to 3 - Labs CBC & Chem 7: 12/16/23 03:24 12/15/23 06:37 Labs: Abnormal Lab Results - Last 24 Hours (Table) 12/16/23 Range/Units 03:24 RBC 2.80 L (3.80-5.40) m/uL Hgb 8.8 L (11.4-16.0) gm/dL Hct 27.1 L (34.0-46.0) % Lymphocytes # 0.8 L (1.0-4.8) k/uL Microbiology - Last 24 Hours (Table) 12/15/23 00:00 Urine Culture - Final Urine,Voided 12/14/23 21:57 Blood Culture - Preliminary Blood Assessment and Plan Assessment: 1. Status post right hip arthroplasty on 12/13/2023 2. History of essential hypertension 3. History of anxiety and depression 4. History of hyperlipidemia 5. History of migraines 6. Febrile concerns of possible pneumonia. Patient started on IV Zosyn 7. Hypotension. Cardiology service is consulted patient was given multiple boluses Thank you for this consultation we will continue to follow closely throughout stay Repeat labs ordered for a.m. patient started on IV Zosyn Blood and urine cultures ordered Infectious disease and cardiology services consulted Continue to monitor patient at this time
[2023-12-16] MEDS: HYDROcodone/APAP 5-325MG 1 EACH TAB PO PRN (13:57)
== END 2023-12-16 14:19 | disposition home health service (06) | DRG 469 ==
LOC: OR 10:38 → 4SSUR 15:14 → OR 12-15 14:12 → 4SSUR 12-15 14:12
PROVIDERS: ADMIT Orthopaedic Surgery; ATTEND Orthopaedic Surgery
PROC: 0SR90JA Replacement of Right Hip Joint with Synthetic Substitute, Uncemented, Open Approach (ICD-10-PCS; principal; 2023-12-13 12:30)
DX: M16.11 Unilateral primary osteoarthritis, right hip (principal); J69.0 Pneumonitis due to inhalation of food and vomit; E78.5 Hyperlipidemia, unspecified; I10 Essential (primary) hypertension; R09.02 Hypoxemia; D64.9 Anemia, unspecified; Z79.82 Long term (current) use of aspirin; Z79.899 Other long term (current) drug therapy; Z80.0 Family history of malignant neoplasm of digestive organs; Z87.442 Personal history of urinary calculi; Z87.891 Personal history of nicotine dependence; F32.A Depression, unspecified; F41.9 Anxiety disorder, unspecified; K21.9 Gastro-esophageal reflux disease without esophagitis; I95.81 Postprocedural hypotension
CPT/HCPCS: 64447; 71045; 71275; 73501; 80053; 81003; 85025; 87040; 87086; 93005; 94760

== ENCOUNTER → 2024-03-04 | Outpatient (CLI) | payer MEDICARE, BC | END | disposition home or self-care (01) | LOC: LABWHC1 14:16 | PROVIDERS: ATTEND Orthopaedic Surgery | CPT/HCPCS: 36415; 85379; 85652; 86140 ==

== ENCOUNTER → 2024-07-31 | Day surgery (SDC) | payer MEDICARE, BC ==
[~2024-07-31] MED LIST changes: -ACETAMINOPHEN TAB 500 MG TAB PO PRN; -HYDROmorphone 0.5 MG/0.5 ML SYRINGE IVP PRN; +LACTATED RINGERS 1,000 ML IV SCH; -LIDOCAINE 1% (10MG/ML) FOR IV START INTRADERMA PRN; -MIDAZOLAM 2 MG/2 ML VIAL IV PRN; +MOXIFLOXACIN HCL 0.5% DROPS 3 ML BTL OP PRN; -ONDANSETRON 4 MG/2 ML VIAL IVP PRN; +TETRACAINE 0.5% OPHTH (PF) DROPS 4 ML BTL OP PRN; +TIMOLOL 0.5% OPHTH DROPS 5 ML BTL OP PRN; -TRANEXAMIC 1,000 MG/100ML-NACL 1,000 MG in SALINE 1 100ML.BAG IV PRN; -TRANEXAMIC 1,000 MG/100ML-NACL 1,000 MG in SALINE 1 100ML.BAG IVPB PRN
[2024-07-31] MEDS: CYCLOPENTOLATE 1% OPHTH SOLN 2 ML BTL OP PRN (07:19)
[2024-07-31] MEDS: IV FLUID CONTINUATION 1,000 ML IV ONE (07:20)
[2024-07-31] MEDS: PHENYLEPHRINE 2.5% OPHTH DRP 2ML OP PRN (07:22)
[2024-07-31 08:00] VITALS: BP 132/72; PULSE 71; RESP 16; TEMP 98.2
== END | disposition home or self-care (01) ==
LOC: OR 06:45
PROVIDERS: ATTEND Ophthalmology
DX: H25.12 Age-related nuclear cataract, left eye (principal); Z53.8 Procedure and treatment not carried out for other reasons; H25.012 Cortical age-related cataract, left eye; H40.2220 Chronic angle-closure glaucoma, left eye, stage unspecified; H40.1323 Pigmentary glaucoma, left eye, severe stage; H40.52X3 Glaucoma secondary to other eye disorders, left eye, severe stage; H40.1311 Pigmentary glaucoma, right eye, mild stage; H40.2214 Chronic angle-closure glaucoma, right eye, indeterminate stage; H25.11 Age-related nuclear cataract, right eye; H40.51X1 Glaucoma secondary to other eye disorders, right eye, mild stage; I10 Essential (primary) hypertension; E78.00 Pure hypercholesterolemia, unspecified; J45.909 Unspecified asthma, uncomplicated; F41.9 Anxiety disorder, unspecified; Z79.899 Other long term (current) drug therapy

== ENCOUNTER 2024-08-07 10:08 | Day surgery (SDC) | payer MEDICARE, BC ==
[2024-08-05 15:29] VITALS: BMI 30.9
[~2024-08-07 10:08] MED LIST changes: -LACTATED RINGERS 1,000 ML IV SCH; -MOXIFLOXACIN HCL 0.5% DROPS 3 ML BTL OP PRN; -TIMOLOL 0.5% OPHTH DROPS 5 ML BTL OP PRN
[2024-08-07] MEDS: CYCLOPENTOLATE 1% OPHTH SOLN 2 ML BTL OP PRN (10:45)
[2024-08-07] MEDS: PHENYLEPHRINE 2.5% OPHTH DRP 2ML OP PRN (10:48)
[2024-08-07] MEDS: LACTATED RINGERS 1,000 ML IV SCH (10:50)
[2024-08-07] MEDS: LIDOCAINE 1% (10MG/ML) FOR IV START INTRADERMA STA (10:50)
[2024-08-07] MEDS: IV FLUID CONTINUATION 1,000 ML IV ONE (10:50)
[2024-08-07 10:59] VITALS: TEMP 97.5
[2024-08-07] MEDS ORDERED: fentaNYL (PF) 50 MCG/ML 2 ML AMP ONE (11:28)
[2024-08-07] MEDS ORDERED: MIDAZOLAM 2 MG/2 ML VIAL ONE (11:28)
[2024-08-07] MEDS: TIMOLOL 0.5% OPHTH DROPS 5 ML BTL OP PRN (11:47)
[2024-08-07] MEDS: MOXIFLOXACIN HCL 0.5% DROPS 3 ML BTL OP PRN (11:47)
[2024-08-07] MEDS: BALANCED SALT IRRIG SOLN COMB2 15 ML IRRIG.SOLN INTRAOCULA ONE (11:47)
[2024-08-07] MEDS: DUOVISC KIT (GREEN BOX) INTRAOCULA ONE (11:48)
[2024-08-07] MEDS: TRYPAN BLUE 0.06% SYRINGE 0.5 ML SYRINGE INTRAOCULA ONE (11:48)
[2024-08-07] MEDS: LIDOCAINE 1% (PF) 10MG/ML VIAL MISCELLANE ONE (11:48)
[2024-08-07] MEDS: EPINEPHrine (PF) 0.3 ML in BALANCED SALT IRRIG SOLN COMB2 500 ML IRRIGATION ONE (11:53)
--- NOTE | 2024-08-07 12:09 | P.OP ---
Date of Procedure: 08/07/24 Preoperative Diagnosis: NS & CS & glaucoma mild open Postoperative Diagnosis: same Procedure(s) Performed: PIOL, OS & goniotomy Implants: [id number] 24.50 Anesthesia: MAC Surgeon: Fortino Hamlin Pathology: none sent Condition: stable Disposition: same day Indications for Procedure: blurry vision and glaucoma control Operative Findings: no complications
[2024-08-07 12:30] VITALS: PULSE 60
[2024-08-07 13:26] VITALS: BP 122/79; RESP 17
--- NOTE | 2024-08-07 23:50 | OP ---
OPERATIVE REPORT DATE OF SERVICE : 08/07/2024 PROCEDURES: Phacoemulsification of cataract and intraocular lens implant of the left eye with goniotomy of the left eye. 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 ANESTHESIA: Topical. ESTIMATED BLOOD LOSS: Less than 5 mL. SPECIMEN TAKEN: None. NARRATIVE: After obtaining the appropriate consent, the patient was brought to the operating room. There, she was placed under cardiac monitoring and prepped and draped in the usual sterile manner. At the 5 o'clock position, an MVR blade was used to create a paracentesis port. Through this opening, 1% Xylocaine MPF was instilled into the anterior chamber. This was followed by installation of Trypan blue, which was allowed to stay in the eye for about 90 seconds. This was irrigated away with balanced salt solution and the anterior chamber was then stabilized with Viscoat. At the 3 o'clock position, a 2.5 mm keratome was used to create a self-sealing corneal flap incision. A small amount of Viscoat was placed on the patient's cornea and the patient was rotated to her right approximately 45 degrees while maintaining a gaze in the general direction. A gonioprism was placed on the patient's eye and a KDB knife was then advanced across the anterior chamber and using a angie and meet method, approximately 4 to 5 clock hours of nasal trabecular meshwork was removed without difficulty. A small amount of blood was refluxed from the open Schlemm's canal as was expected. The patient was then rotated back to the normal supine position. Additional Viscoat was placed in the anterior chamber and a cystotome was used to begin a continuous tear capsulorrhexis which was then completed using the Utrata forceps. Hydrodissection and hydrodelineation of the lens were accomplished with balanced salt solution. Phacoemulsification lens utilizing phaco chop was accomplished in 9.14 seconds at 14.5% power. Additional Xylocaine MPF was instilled into the anterior chamber. This was followed by removal of the remaining cortical material under irrigation and aspiration and careful polishing of the posterior capsule in the capsule vacuum mode. A small amount of Provisc was then used to stabilize the capsular bag and a Florentin and Florentin DCB00, 24.5 diopter posterior chamber intraocular lens was injected into the capsular bag without difficulty. The remaining viscoelastic was removed from in and around the intraocular lens and the anterior chamber. The eye was then confirmed to be watertight and the eye was then brought to slightly above normal intraocular pressure to about 25 to 26 mmHg with balanced salt solution. She then received 2 drops of 0.5% timolol followed by 2 drops of 0.5% moxifloxacin. She was then lightly patched and shielded in the usual manner. There were no complications from the procedure. She tolerated the procedure well and was returned to recovery in good condition. MMODL / IJN: [id number] /
== END 2024-08-07 12:53 | disposition home or self-care (01) ==
LOC: OR 10:08
PROVIDERS: ATTEND Ophthalmology
DX: H25.12 Age-related nuclear cataract, left eye (principal); H40.032 Anatomical narrow angle, left eye; H40.10X2 Unspecified open-angle glaucoma, moderate stage; I10 Essential (primary) hypertension; E78.00 Pure hypercholesterolemia, unspecified; H25.012 Cortical age-related cataract, left eye; H40.1323 Pigmentary glaucoma, left eye, severe stage; H40.52X3 Glaucoma secondary to other eye disorders, left eye, severe stage; H40.2220 Chronic angle-closure glaucoma, left eye, stage unspecified
CPT/HCPCS: 66984; 65820; V2632; J2250; J0171; J3010; J2003

== ENCOUNTER → 2024-08-12 | Outpatient (CLI) | payer MEDICARE, BC ==
--- NOTE | 2024-08-12 10:56 | MM ---
Reason for Exam: Additional evaluation requested from prior study. Last mammogram was performed 1 year(s) and 3 month(s) ago. Patient History: Menarche at age 12. First Full-Term at age 24. Postmenopausal. Patient has history of breast feeding. Maternal grandmother had breast cancer, age 85. Maternal aunt had breast cancer, age 50. Risk Values: Carmen 5 year model risk: 1.5%. NCI Lifetime model risk: 4.8%. Prior Study Comparison: 02/18/2010 Bilateral Diagnostic Mammogram, [facility]. 09/05/2017 Bilateral Screening Mammogram, [facility]. 05/17/2023 Bilateral MG screening mammo w CAD, [facility]. 05/26/2023 Left MG 3D work up w/cad LT, [facility]. 11/29/2023 Left MG 3D diag mammo w/cad LT, [facility]. Tissue Density: There are scattered areas of fibroglandular density. Findings: Analyzed By CAD. Stable appearing benign calcifications. No dominant mass or architectural distortion. Overall Assessment: Benign, BI-RAD 2 Management: Screening Mammogram of both breasts in 1 year. . Results were given to the patient verbally at the time of exam. Patient should continue monthly self-breast exams. A clinical breast exam by your physician is recommended on an annual basis. This exam should not preclude additional follow-up of suspicious palpable abnormalities. Note on Carmen scores and lifetime risk: 1. A Carmen score greater than 3% is considered moderate risk. If this is the case, consider specialist referral to assess eligibility for a risk reducing agent. 2. If overall lifetime risk for the development of breast cancer is 20% or higher, the patient may qualify for future screening with alternating mammogram and breast MRI. [facility], , 08/12/2024 10:53 AM. Electronically signed and approved by: Jah Best M.D. Radiologis
== END | disposition home or self-care (01) ==
LOC: RADMAMWWP 10:21
PROVIDERS: ATTEND Family Medicine
DX: R92.8 Other abnormal and inconclusive findings on diagnostic imaging of breast (principal); R92.323 Mammographic fibroglandular density, bilateral breasts; Z78.0 Asymptomatic menopausal state; Z80.3 Family history of malignant neoplasm of breast
CPT/HCPCS: 77066; G0279; 77062

== ENCOUNTER 2024-08-14 09:34 | Day surgery (SDC) | payer MEDICARE, BC ==
[~2024-08-14 09:34] MED LIST changes: +LIDOCAINE 1% (10MG/ML) FOR IV START INTRADERMA PRN
[2024-08-14] MEDS: IV FLUID CONTINUATION 1,000 ML IV ONE (10:21)
[2024-08-14 10:23] VITALS: TEMP 97.5
[2024-08-14] MEDS: CYCLOPENTOLATE 1% OPHTH SOLN 2 ML BTL OP PRN (10:30)
[2024-08-14] MEDS: PHENYLEPHRINE 2.5% OPHTH DRP 2ML OP PRN (10:33)
[2024-08-14] MEDS: LACTATED RINGERS 1,000 ML IV SCH (10:35)
[2024-08-14] MEDS ORDERED: MIDAZOLAM 2 MG/2 ML VIAL ONE (12:00)
[2024-08-14] MEDS ORDERED: fentaNYL (PF) 50 MCG/ML 2 ML AMP ONE (12:00)
[2024-08-14] MEDS: EPINEPHrine (PF) 0.3 ML in BALANCED SALT IRRIG SOLN COMB2 500 ML IRRIGATION ONE (12:15)
[2024-08-14] MEDS: TRYPAN BLUE 0.06% SYRINGE 0.5 ML SYRINGE MISCELLANE ONE (12:16)
[2024-08-14] MEDS: BALANCED SALT IRRIG SOLN COMB2 15 ML IRRIG.SOLN INTRAOCULA ONE (12:16)
[2024-08-14] MEDS: DUOVISC KIT (GREEN BOX) INTRAOCULA ONE (12:16)
[2024-08-14] MEDS: MOXIFLOXACIN HCL 0.5% DROPS 3 ML BTL OP PRN (12:17)
[2024-08-14] MEDS: TIMOLOL 0.5% OPHTH DROPS 5 ML BTL OP PRN (12:17)
[2024-08-14] MEDS: LIDOCAINE 1% (PF) 10MG/ML VIAL MISCELLANE ONE (12:17)
--- NOTE | 2024-08-14 12:34 | P.OP ---
Date of Procedure: 08/14/24 Preoperative Diagnosis: NS & POAG Postoperative Diagnosis: same Procedure(s) Performed: PIOL & goniotomy Implants: [id number] 25.00 Anesthesia: MAC Surgeon: Fortino Hamlin Pathology: none sent Condition: stable Disposition: same day Indications for Procedure: blurry vision and glaucoma control Operative Findings: no complications
[2024-08-14 13:00] VITALS: BP 126/77; PULSE 65; RESP 16
--- NOTE | 2024-08-14 20:49 | OP ---
OPERATIVE REPORT DATE OF SERVICE : 08/14/2024 PROCEDURES PERFORMED: Phacoemulsification of cataract with intraocular lens implant and goniotomy of the right eye. 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 ANESTHESIA: Topical. ESTIMATED BLOOD LOSS: None. SPECIMENS TAKEN: None. NARRATIVE: After obtaining the appropriate consent, the patient was brought into the operating room, where she was placed under cardiac monitoring, prepped and draped in the usual sterile manner. She was approached from the right temporal side and at the 11 o'clock position, an MVR blade was used to create a paracentesis port. Through this opening, 1% Xylocaine MPF 50:50 mix of balanced salt solution was injected into the anterior chamber. This was followed by Trypan blue, which was allowed to stay in the eye for about 90 seconds. This was washed away with balanced salt solution and the anterior chamber was then stabilized with Viscoat. At the 9 o'clock position, a 2.5 mm keratome was used to create a self-sealing corneal flap incision. A small amount of viscoelastic was placed on the patient's cornea. The patient was asked to rotate towards her left, approximately 45 degrees, maintaining a gaze in that general direction and a gonioprism was placed on the patient's eye. Identification of the trabecular meshwork was easily made with the Trypan blue and a SuperDerivativesook dual blade goniotomy knife was advanced across the anterior chamber and using a angie and meet method, approximately 4 to 4-1/2 clock hours of trabecular meshwork was removed without difficulty. The patient was then rotated back to the normal supine position and a cystotome was introduced to begin continuous tear capsulorrhexis, which was then completed using the Utrata forceps. Hydrodissection and hydrodelineation of the lens were accomplished with balanced salt solution. Phacoemulsification lens utilizing Phaco chop was accomplished in 6.93 seconds at 9.1% power. Additional Xylocaine MPF was instilled into the anterior chamber. This was followed by removal of the remaining cortical material under irrigation and aspiration as well as careful polishing of the posterior capsule in the capsule vacuum mode. Additional Amvisc was then used to stabilize the capsular bag and a Florentin and Florentin DCB00 25.0 diopter posterior chamber intraocular lens was then inserted into the capsular bag without difficulty. Remaining viscoelastic was removed from in and around the intraocular lens and the eye was then brought to slightly above normal intraocular pressure through the paracentesis port while confirming all wounds were watertight. She then received 2 drops of 0.5% timolol followed by 2 drops of 0.5% moxifloxacin and it was then lightly patched and shielded in the usual manner. There were no complications from the procedure. She tolerated the procedure well and was returned to outpatient recovery in good condition. MARGIE / IJN: [id number] /
== END 2024-08-14 13:35 | disposition home or self-care (01) ==
LOC: OR 09:34
PROVIDERS: ATTEND Ophthalmology
DX: H25.11 Age-related nuclear cataract, right eye (principal); H40.1323 Pigmentary glaucoma, left eye, severe stage; H40.1311 Pigmentary glaucoma, right eye, mild stage; H40.2220 Chronic angle-closure glaucoma, left eye, stage unspecified; H40.2214 Chronic angle-closure glaucoma, right eye, indeterminate stage; H40.52X3 Glaucoma secondary to other eye disorders, left eye, severe stage; H40.51X1 Glaucoma secondary to other eye disorders, right eye, mild stage; Z96.1 Presence of intraocular lens; I10 Essential (primary) hypertension; E78.5 Hyperlipidemia, unspecified; F32.A Depression, unspecified; Z89.121 Acquired absence of right wrist; Z79.82 Long term (current) use of aspirin; Z79.899 Other long term (current) drug therapy
CPT/HCPCS: 66984; V2632; J2250; J0171; J3010; J2003